=== PATIENT | male | born 1995 | race Caucasian/White ===

== ENCOUNTER → 2017-01-07 | Outpatient (CLI) | payer OTHER ==
[2017-01-07 13:39] VITALS: BP 130/84; PULSE 90; RESP 16; TEMP 97
--- NOTE | 2017-01-07 14:03 | P.CONS ---
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 There are no alleviating or relieving factors. The aching pain is constant however the sharp pain that he gets from time to time is intermittent. The pain starts from the right inguinal incision down to the right scrotum. The patient feels some tingling in this area. The patient tried Soma before from his family physician however that did not help his pain and made him feel uncomfortable. Review of Systems All systems: negative Past Medical History Past Medical History: No Reported History History of Any Multi-Drug Resistant Organisms: None Reported Past Surgical History: Hernia Repair Additional Past Surgical History / Comment(s): right inguinal hernia repair x 2 , left inguinal repair. TONGUE SURGERY D/T "BUMP"-REMOVED. Past Anesthesia/Blood Transfusion Reactions: Postoperative Nausea & Vomiting ( PONV) Additional Past Anesthesia/Blood Transfusion Reaction / Comm: gets very nauseated w/anesthesia Past Psychological History: Anxiety Smoking Status: Never smoker Past Alcohol Use History: None Reported, Rare Additional Past Alcohol Use History / Comment(s): ONE DRINK EVERY OTHER MONTH. Past Drug Use History: Marijuana Additional Drug Use History / Comment(s): USED YEARS AGO. - Past Family History Mother Family Medical History: Cancer, Hypertension Additional Family Medical History / Comment(s): SKIN CANCER. Father Family Medical History: Hypertension Medications and Allergies Home Medications Medication Instructions Recorded Confirmed Type Escitalopram [Lexapro] 5 mg PO HS 01/07/17 01/07/17 History Ibuprofen [Motrin] 400 mg PO DIRECTED PRN 01/07/17 01/07/17 History Allergies Allergy/AdvReac Type Severity Reaction Status Date / Time No Known Allergies Allergy Verified 01/07/17 13:19 Physical Exam Vitals: Vital Signs Temp Pulse Resp BP Pulse Ox 01/07/17 13:34 97 F L 90 16 130/84 99 Intake and Output 01/06/17 01/07/17 01/07/17 22:59 06:59 14:59 Other: Weight 72.575 kg Patient Weight 01/08/17 06:59 Weight 72.575 kg - Psychiatric Psychiatric: A&O x's 3, appropriate affect, intact judgment & insight The patient is alert oriented 3 in no apparent distress. He has tenderness in the right inguinal hernia around the well-healed scar from his previous inguinal hernia repair. There is no swelling. There is no allodynia to touch. There are no skin changes and no erythema. No flank tenderness to palpation and percussion. Internal and external rotation of the right hip joint did not elicit any pain. Brian's test on the right side did not elicit any pain. Lungs are clear to auscultation heart is regular no murmurs. Assessment and Plan Plan: This is a 21-year-old gentleman with right groin pain. 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 I will schedule the patient to have right ilioinguinal nerve block under ultrasound guidance. I will also start him on small dose of Neurontin starting with 100 mg at night and the goal will be to go up to 1800 mg a day if he does not get any side effects to it I spoke with the patient about the possible side effects from Neurontin commonly sedation and weight gain. I thank our surgical colleagues for the consultation.
== END | disposition home or self-care (01) ==
LOC: PNWHC3 13:08
PROVIDERS: ATTEND Anesthesiology
DX: R10.31 Right lower quadrant pain (principal); F41.9 Anxiety disorder, unspecified; Z98.890 Other specified postprocedural states; Z79.1 Long term (current) use of non-steroidal anti-inflammatories (NSAID); Z79.899 Other long term (current) drug therapy
CPT/HCPCS: 99211

== ENCOUNTER 2017-01-28 08:40 | Day surgery (SDC) | payer OTHER ==
[2017-01-28 09:27] VITALS: TEMP 97.7
[2017-01-28] MEDS: LACTATED RINGERS 1,000 ML IV SCH ×2 (09:34→10:02)
[2017-01-28] MEDS ORDERED: LIDOCAINE 1% 20 ML VIAL (10MG/ML) FOR IV START INTRADERMA ONE (09:34)
[2017-01-28] MEDS ORDERED: MIDAZOLAM 2 MG/2 ML VIAL ONE (10:03)
[2017-01-28] MEDS ORDERED: TRIAMCINOLONE ACETONIDE 40 MG/ML 1 ML VIAL ONE (10:03)
[2017-01-28] MEDS ORDERED: fentaNYL (PF) 50 MCG/ML 2 ML AMP ONE (10:03)
[2017-01-28] MEDS ORDERED: BUPIVACAINE (PF) 0.75% 30 ML VIAL ONE (10:03)
[2017-01-28] MEDS ORDERED: IV FLUID CONTINUATION 1,000 ML IV ONE (10:34)
[2017-01-28 10:39] VITALS: PULSE 87; RESP 18
[2017-01-28 10:55] VITALS: BP 132/82
--- NOTE | 2017-01-30 11:45 | P.PCN ---
Date of Procedure: 01/28/17 Preoperative Diagnosis: Postoperative Diagnosis: Procedure(s) Performed: Preoperative diagnoses= 1-ilioinguinal neuralgia. Postoperative diagnoses= same as preoperative diagnosis. Procedure= Right Ilioinguinal nerve block with ultrasound guidance. Anesthesia= conscious sedation with Versed 2 mg and fentanyl 100 micrograms and local infiltration with lidocaine 1% 4 ml Estimated blood loss=minimal. Procedure indication= the patient had a history of severe chronic Right Groin pain, diagnosed with ilioinguinal neuralgia , unresponsive to conservative treatment. and patient here to have Right ilioinguinal nerve block Procedure description= the patient was seen and identified in the preoperative holding area, risks and benefits and alternative of the procedure and possible complications discussed with the patient, and he agreed with the preceding, patient signed the consent, an IV was started, and vital signs were monitored and were stable throughout the procedure, patient was placed in the supine position on the stretcher and Right groin and lower abdomen area was prepped , and draped with a sterile fashion, vital signs were closely monitored during the procedure, the linear ultrasound probe was placed in the medial and superior aspect of the on the Right iliac Crest, ,the Transvurs abdominus muscle,and the internal obique muscules identified, and the locations of the Right ilioinguinal nerve identified , local infiltration of the skin and subcutaneous tissue with lidocaine 1% 2 mL then a 20 -gauge 2 inches ultrasound needle advanced slowly with continous visualizations of the needle tip , and needle was in close proxemity of the Right ilioinguinal nerve , and after appropriate needle placement confirmed withe ultrasound ,the negative aspiration for heme , and there was no paresthesia during the injection, 10 ml of Marcaine 0.5% and 20 mdg of Dexamethasone , injected after negative aspiration, the needle removed, Then the skin was cleaned and a Band-Aid applied, the patient transported to recovery room in stable condition and he was monitored for 30 minutes before he was discharged home and then patient was reexamined before going home and patient was discharged in stable condition and patient will follow up with the pain clinic in a few weeks Implants: Indications for Procedure: Operative Findings: Description of Procedure:
== END 2017-01-28 11:08 | disposition home or self-care (01) ==
LOC: ORPAIN 08:40
PROVIDERS: ATTEND Specialist
DX: G89.29 Other chronic pain (principal); G57.81 Other specified mononeuropathies of right lower limb
CPT/HCPCS: 64425; 99152; J2250; J3301; J3010

== ENCOUNTER 2017-03-05 06:09 | Day surgery (SDC) | payer OTHER ==
[2017-03-05 07:28] VITALS: RESP 16; TEMP 97.7
[2017-03-05] MEDS ORDERED: LACTATED RINGERS 1,000 ML IV SCH (07:30)
[2017-03-05] MEDS ORDERED: LIDOCAINE 1% 20 ML VIAL (10MG/ML) FOR IV START INTRADERMA ONE (07:39)
[2017-03-05] MEDS ORDERED: IV FLUID CONTINUATION 1,000 ML IV ONE (08:32)
[2017-03-05 08:36] VITALS: PULSE 81
--- NOTE | 2017-03-05 08:39 | P.PCN ---
Date of Procedure: 03/05/17 Preoperative Diagnosis: Postoperative Diagnosis: Procedure(s) Performed: Implants: Surgeon: Tim Billingsley Pathology: none sent Condition: stable Disposition: PACU Indications for Procedure: Operative Findings: Description of Procedure: PROCEDURE: Ultrasound guided Right ilioinguinal nerve block. PREOPERATIVE DIAGNOSIS: 1-Right ilioinguinal neuralgia. POSTOPERATIVE DIAGNOSIS: 1-Right ilioinguinal neuralgia. ANESTHESIA: Local anesthesia + IV sedation with Versed/fentanyl PROCEDURE INDICATION: History of pain in the right groin secondary to ilioinguinal neuralgia after hernia repair that has been unresponsive to more conservative treatment measures; patient had inguinal hernia repair and has had persistent pain even after first ilioinguinal nerve block, although this did give him significant (>60%) relief. Ultrasound was used to verify needle position and maximize safety. No use of blood thinners. PROCEDURE DESCRIPTION: The patient was seen and identified in the preoperative area. Risks, benefits, complications, and alternatives were discussed with the patient, with risks including but not limited to bleeding, infection, nerve damage, incomplete pain relief, and allergic reactions to medications. The patient agreed to proceed with the procedure and signed the consent. IV was started, and vital signs were stable. Patient was taken to the OR and time out was completed to verify area of pain, laterality of pain, procedure, and allergies to medications. Using ultrasound the different abdominal wall layers, the external oblique, the internal oblique, and the transversus abdominus were identified on the right side of the abdomen and pelvix. Subsquently, a 2-inch 22 gauge spinal needle was advanced under direct ultrasound guidance to the layer between the internal oblique and the transversus abdominus which corresponds to the block site of the ilioinguinal nerve. Subsequently, and after negative aspiration of air and blood, 10 mL of a block solution containing Kenalog 40 mg and 9 mL of 0.5% preservative-free bupivacaine, was injected under direct ultrasound guidance. Needle was then removed intact. Skin was cleansed and bandages were applied. There were no complications. DISPOSITION / PLANS: The patient was placed in a supine position and transferred to the recovery area in a stable condition for observation and was discharged from the recovery room after meeting discharge criteria. Home discharge instructions given to the patient by the staff. The patient was reexamined prior to discharge and already had excellent relief. The patient will schedule a follow up in the clinic in 2-4 weeks.
[2017-03-05 09:04] VITALS: BP 134/76
== END 2017-03-05 09:09 | disposition home or self-care (01) ==
LOC: ORPAIN 06:09
PROVIDERS: ATTEND Anesthesiology
DX: G58.8 Other specified mononeuropathies (principal); Z79.1 Long term (current) use of non-steroidal anti-inflammatories (NSAID); Z79.899 Other long term (current) drug therapy
CPT/HCPCS: 64425; 99152; 99153; J2250; J3301; J3010

== ENCOUNTER → 2017-06-10 | Outpatient (CLI) | payer OTHER ==
--- NOTE | 2017-06-10 14:33 | XR ---
EXAMINATION TYPE: XR lumbar spine 2 or 3V DATE OF EXAM: 06/10/2017 CLINICAL HISTORY: Back pain after lifting injury TECHNIQUE: Frontal and lateral images of the lumbar spine were obtained COMPARISON: None FINDINGS: There are 5 lumbar type vertebral bodies identified. The lumbar spine shows satisfactory alignment without evidence of acute fracture or dislocation. Vertebral body heights and disk space he ights are within normal limits. The oblique images appear within normal limits. The overlying soft tissue appears unremarkable. IMPRESSION: No acute fracture or malalignment is seen in the lumbar spine.
== END | disposition home or self-care (01) ==
LOC: RADXRMAIN 14:04
PROVIDERS: ATTEND Emergency Medicine
DX: S39.012D Strain of muscle, fascia and tendon of lower back, subsequent encounter (principal)
CPT/HCPCS: 72100

== ENCOUNTER → 2017-08-24 | Outpatient (CLI) | payer OTHER ==
[2017-08-24 08:34] LABS: Basophils # (A) 0.1 k/uL (0-0.2); Basophils % (A) 1 %; Eosinophils # (A) 0.1 k/uL (0-0.7); Eosinophils % (A) 2 %; HCT 49.5 % (39.0-53.0); HGB 16.3 gm/dL (13.0-17.5); Lymphocytes # (A) 2.1 k/uL (1.0-4.8); Lymphocytes % (A) 31 %; MCH 30.9 pg (25.0-35.0); MCV 93.6 fL (80.0-100.0); Mean Platelet Volume 7.2; Monocytes # (A) 0.5 k/uL (0-1.0); Monocytes % (A) 7 %; Neutrophils % (A) 58 %; Platelet Count 302 k/uL (150-450); RBC 5.29 m/uL (4.30-5.90); RDW 13.8 % (11.5-15.5)
[2017-08-24 09:04] LABS: ALT 65 U/L (21-72); AST 34 U/L (17-59); Albumin 4.8 g/dL (3.5-5.0); Alkaline Phosphatase 54 U/L (38-126); Anion Gap 10 mmol/L; Blood Urea Nitrogen 12 mg/dL (9-20); Carbon Dioxide 31 mmol/L (22-30); Chloride 101 mmol/L (98-107); Cholesterol 200 mg/dL (<200); Glucose 94 mg/dL (74-99); HDL Cholesterol 35 mg/dL (40-60); LDL Cholesterol,Calculated 140 mg/dL (0-99); Potassium 4.5 mmol/L (3.5-5.1); Sodium 142 mmol/L (137-145); Total Bilirubin 0.5 mg/dL (0.2-1.3); Total Protein 7.5 g/dL (6.3-8.2); Triglycerides 125 mg/dL (<150)
== END | disposition home or self-care (01) ==
LOC: LABWHC1 07:57
PROVIDERS: ATTEND Family Medicine
DX: I10 Essential (primary) hypertension (principal); G47.09 Other insomnia
CPT/HCPCS: 36415; 80053; 80061; 84443; 85025

== ENCOUNTER 2018-04-06 19:16 | Inpatient (IN) | payer OTHER ==
[2018-04-06 19:26] VITALS: TEMP 97.6
[2018-04-06] MEDS ORDERED: LORazepam 2 MG/ML INJ IV STA (19:59)
[2018-04-06] MEDS ORDERED: SODIUM CHLORIDE 0.9% 2,000 ML IV STA (19:59)
[2018-04-06] MEDS ORDERED: ONDANSETRON 4 MG/2 ML VIAL IVP STA (19:59)
--- NOTE | 2018-04-06 20:04 | ED ---
Anxiety HPI - General Chief Complaint: Anxiety Stated Complaint: anxiety Time Seen by Provider: 04/06/18 19:28 Source: patient, EMS Mode of arrival: EMS - History of Present Illness Initial Comments: Patient is a 22-year-old male presenting for anxiety-like symptoms as well as nausea/vomiting. 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 He states that he was having some abdominal discomfort which is not really pain but more describes a burning sensation in the upper part. He denies any alcohol usage or changes to his diet. He states that this is happened before in terms of panic attacks but they were not associated with nausea or vomiting. - Related Data Home Medications: Home Medications Medication Instructions Recorded Confirmed Escitalopram [Lexapro] 5 mg PO HS 01/07/17 03/05/17 Gabapentin [Neurontin] 100 mg PO HS 01/07/17 03/05/17 Ibuprofen [Motrin] 400 mg PO DIRECTED PRN 01/07/17 03/05/17 Allergies/Adverse Reactions: Allergies Allergy/AdvReac Type Severity Reaction Status Date / Time No Known Allergies Allergy Verified 03/05/17 07:29 Review of Systems ROS Statement: Those systems with pertinent positive or pertinent negative responses have been documented in the HPI. Constitutional: Negative for chills, fatigue and fever. HENT: Negative for congestion. Respiratory: Negative for chest tightness, shortness of breath and wheezing. Negative for cough Cardiovascular: Positive for chest tightness and negative for palpitations. Gastrointestinal: Negative for abdominal pain. Negative for abdominal distention , diarrhea, nausea and vomiting. Genitourinary: Negative for dysuria. Musculoskeletal: Negative for back pain, neck pain and neck stiffness. Skin: Negative for color change. Neurological: Negative for dizziness, speech difficulty, weakness and light- headedness. Psychiatric/Behavioral: Negative for agitation and confusion. Positive for anxiety ROS Other: All systems not noted in ROS Statement are negative. Past Medical History Past Medical History: Hypertension History of Any Multi-Drug Resistant Organisms: None Reported Past Surgical History: Hernia Repair Additional Past Surgical History / Comment(s): right inguinal hernia repair x 2 , left inguinal repair. TONGUE SURGERY D/T "BUMP"-REMOVED. Past Anesthesia/Blood Transfusion Reactions: Postoperative Nausea & Vomiting ( PONV) Additional Past Anesthesia/Blood Transfusion Reaction / Comment(s): gets very nauseated w/anesthesia Past Psychological History: Anxiety Smoking Status: Never smoker Past Alcohol Use History: Rare Past Drug Use History: Marijuana - Past Family History Mother Family Medical History: Cancer, Hypertension Additional Family Medical History / Comment(s): SKIN CANCER. Father Family Medical History: Hypertension General Exam - General Exam Comments Initial Comments: Constitutional: Pt is oriented to person, place, and time. Pt appears well- developed and well-nourished. No distress. HENT: Head: Normocephalic and atraumatic. Eyes: EOM are normal. Neck: Normal range of motion. Neck supple. Cardiovascular: Tachycardia present, regular rhythm, S1 normal, S2 normal and normal heart sounds. Exam reveals no gallop and no friction rub. No murmur heard. Pulmonary/Chest: Effort normal and breath sounds normal. No tachypnea and no bradypnea. No respiratory distress. No wheezes or rales noted. Abdominal: Soft. Bowel sounds are normal. Pt exhibits no shifting dullness, no distension, no pulsatile liver, no fluid wave, no abdominal bruit and no ascites. There is no tenderness. There is no rigidity, no rebound, no guarding, no tenderness at McBurney's point and negative Burt's sign. Musculoskeletal: Normal range of motion. Neurological: Pt is alert and oriented to person, place, and time. No cranial nerve deficit. Skin: Skin is warm and dry. No rash noted. Pt is not diaphoretic. No erythema. No pallor. Psychiatric: Patient is anxious. Pt behavior is normal. Thought content normal. Limitations: no limitations Course Vital Signs 04/06/18 04/06/18 19:22 22:19 Temperature 97.6 F Pulse Rate 87 110 H Respiratory 17 17 Rate Blood Pressure 136/86 142/72 O2 Sat by Pulse 98 99 Oximetry Medical Decision Making - Medical Decision Making Laboratory studies showed that there is a leukocytosis of 22.3 and significant electrolyte derangements including hypocalcemia of 6.3 both in non-ionized calcium and ionized calcium. However, EKG showed no significant findings and patient was given 2 L of fluids as well as 1 mg of Ativan. Even so, the patient continued to been tachycardic in the 1 teens. There is no clear discernible source for this and therefore is felt that considering the tachycardia, it be prudent to bring the patient in for continued IV hydration as well as monitoring. Additionally, there is concern for possible adrenal gland etiology and therefore some of the kidneys and adrenal glands were ordered. Urinalysis and urine drug screen are also pending at the time of disposition..Explained all labs and diagnostic test results and that we will admit patient to hospital. Pt is agreeable to plan and case has been discussed with Dr. Herring and they agree to accept the pt. - Lab Data Result diagrams: 04/06/18 20:11 04/06/18 20:11 Lab Results 04/06/18 04/06/18 04/06/18 Range/Units 20:11 20:11 21:30 WBC 22.3 H (3.8-10.6) k/uL RBC 5.42 (4.30-5.90) m/uL Hgb 16.8 (13.0-17.5) gm/dL Hct 48.4 (39.0-53.0) % MCV 89.2 (80.0-100.0) fL MCH 31.0 (25.0-35.0) pg MCHC 34.7 (31.0-37.0) g/dL RDW 12.3 (11.5-15.5) % Plt Count 299 (150-450) k/uL Neutrophils % 87 % Lymphocytes % 6 % Monocytes % 6 % Eosinophils % 1 % Basophils % 0 % Neutrophils # 19.4 H (1.3-7.7) k/uL Lymphocytes # 1.3 (1.0-4.8) k/uL Monocytes # 1.2 H (0-1.0) k/uL Eosinophils # 0.2 (0-0.7) k/uL Basophils # 0.0 (0-0.2) k/uL Sodium 143 (137-145) mmol/L Potassium 3.4 L (3.5-5.1) mmol/L Chloride 119 H (98-107) mmol/L Carbon Dioxide 18 L (22-30) mmol/L Anion Gap 6 mmol/L BUN 10 (9-20) mg/dL Creatinine 0.60 L (0.66-1.25) mg/dL Est GFR (CKD-EPI)AfAm >90 (>60 ml/min/1.73 sqM) Est GFR (CKD-EPI)NonAf >90 (>60 ml/min/1.73 sqM) Glucose 69 L (74-99) mg/dL Calcium 6.3 L* (8.4-10.2) mg/dL Ionized Calcium Kira 6.3 H* (4.5-5.3) mg/dL Total Bilirubin 0.4 (0.2-1.3) mg/dL AST 29 (17-59) U/L ALT 42 (21-72) U/L Alkaline Phosphatase 42 (38-126) U/L Total Protein 5.1 L (6.3-8.2) g/dL Albumin 2.8 L (3.5-5.0) g/dL Lipase 32 (23-300) U/L - EKG Data EKG Comments: EKG shows normal sinus rhythm with a rate of 99 bpm, TX interval 144, QRS 108, QTC 446. There is no significant ST depressions or elevations. Disposition Clinical Impression: SIRS (systemic inflammatory response syndrome), Dehydration, Hypocalcemia, Tachycardia Disposition: ADMITTED IP TO THIS HOSP Condition: Fair Instructions: Generalized Anxiety Disorder (ED) Referrals: Daniel Paulino Jr, [Primary Care Provider] - 1-2 days Decision to Admit Reason: Admit from EC Decision Date: 04/06/18 Decision Time: 23:16
[2018-04-06 20:27] LABS: Basophils % (A) 0 %; Eosinophils # (A) 0.2 k/uL (0-0.7); Eosinophils % (A) 1 %; HCT 48.4 % (39.0-53.0); HGB 16.8 gm/dL (13.0-17.5); Lymphocytes # (A) 1.3 k/uL (1.0-4.8); Lymphocytes % (A) 6 %; MCHC 34.7 g/dL (31.0-37.0); MCV 89.2 fL (80.0-100.0); Mean Platelet Volume 6.5; Monocytes # (A) 1.2 k/uL (0-1.0); Monocytes % (A) 6 %; Neutrophils # (A) 19.4 k/uL (1.3-7.7); Neutrophils % (A) 87 %; Platelet Count 299 k/uL (150-450); RBC 5.42 m/uL (4.30-5.90); RDW 12.3 % (11.5-15.5); WBC 22.3 k/uL (3.8-10.6)
[2018-04-06 20:38] LABS: ALT 42 U/L (21-72); AST 29 U/L (17-59); Albumin 2.8 g/dL (3.5-5.0); Alkaline Phosphatase 42 U/L (38-126); Anion Gap 6 mmol/L; Blood Urea Nitrogen 10 mg/dL (9-20); Carbon Dioxide 18 mmol/L (22-30); Chloride 119 mmol/L (98-107); Glucose 69 mg/dL (74-99); Lipase 32 U/L (23-300); Potassium 3.4 mmol/L (3.5-5.1); Sodium 143 mmol/L (137-145); Total Bilirubin 0.4 mg/dL (0.2-1.3); Total Protein 5.1 g/dL (6.3-8.2)
--- NOTE | 2018-04-06 20:46 | XR ---
EXAMINATION TYPE: XR chest 2V DATE OF EXAM: 04/06/2018 COMPARISON: 03/27/2016 HISTORY: Nausea TECHNIQUE: Frontal and lateral views of the chest are obtained. FINDINGS: Heart and mediastinum are normal. Lungs are clear. Diaphragm is normal. Bony thorax appear s normal. IMPRESSION: Normal chest. No change.
[2018-04-06 20:47] LABS: Calcium 6.3 mg/dL (8.4-10.2)
[2018-04-06] MEDS ORDERED: CALCIUM GLUCONATE 1,000 MG in SODIUM CHLORIDE 0.9% 100 ML IVPB ONE ×2 (21:52→22:00)
[2018-04-06] MEDS ORDERED: NALOXONE 0.4 MG/ML 1 ML VIAL IV PRN (23:09)
[2018-04-06 23:38] VITALS: RESP 18
[2018-04-06] MEDS: SODIUM CHLORIDE 0.9% 1,000 ML IV SCH (23:39)
[2018-04-06 23:41] LABS: Appearance,Urine Clear (Clear); Bilirubin,Urine Negative (Negative); Blood,Urine Negative (Negative); Color,Urine Colorless; Glucose,Urine (UA) Negative (Negative); Ketones,Urine Negative (Negative); Leukocyte Esterase,Urine Negative (Negative); Nitrite,Urine Negative (Negative); Protein,Urine Negative (Negative); Specific Gravity,Urine 1.004 (1.001-1.035); Urobilinogen,Urine <2.0 mg/dL (<2.0)
--- NOTE | 2018-04-06 23:57 | ED ---
Medical Decision Making - Medical Decision Making Repeat EKG timed at 23:26 shows sinus tachycardia of a rate of 112, CA interval 134, QRS 106, QTC 455. There is no significant ST depressions or elevations. - Lab Data Result diagrams: 04/06/18 20:11 04/06/18 20:11 Lab Results 04/06/18 04/06/18 04/06/18 Range/Units 20:11 20:11 21:30 WBC 22.3 H (3.8-10.6) k/uL RBC 5.42 (4.30-5.90) m/uL Hgb 16.8 (13.0-17.5) gm/dL Hct 48.4 (39.0-53.0) % MCV 89.2 (80.0-100.0) fL MCH 31.0 (25.0-35.0) pg MCHC 34.7 (31.0-37.0) g/dL RDW 12.3 (11.5-15.5) % Plt Count 299 (150-450) k/uL Neutrophils % 87 % Lymphocytes % 6 % Monocytes % 6 % Eosinophils % 1 % Basophils % 0 % Neutrophils # 19.4 H (1.3-7.7) k/uL Lymphocytes # 1.3 (1.0-4.8) k/uL Monocytes # 1.2 H (0-1.0) k/uL Eosinophils # 0.2 (0-0.7) k/uL Basophils # 0.0 (0-0.2) k/uL Sodium 143 (137-145) mmol/L Potassium 3.4 L (3.5-5.1) mmol/L Chloride 119 H (98-107) mmol/L Carbon Dioxide 18 L (22-30) mmol/L Anion Gap 6 mmol/L BUN 10 (9-20) mg/dL Creatinine 0.60 L (0.66-1.25) mg/dL Est GFR (CKD-EPI)AfAm >90 (>60 ml/min/1.73 sqM) Est GFR (CKD-EPI)NonAf >90 (>60 ml/min/1.73 sqM) Glucose 69 L (74-99) mg/dL Calcium 6.3 L* (8.4-10.2) mg/dL Ionized Calcium Kira 6.3 H* (4.5-5.3) mg/dL Total Bilirubin 0.4 (0.2-1.3) mg/dL AST 29 (17-59) U/L ALT 42 (21-72) U/L Alkaline Phosphatase 42 (38-126) U/L Total Protein 5.1 L (6.3-8.2) g/dL Albumin 2.8 L (3.5-5.0) g/dL Lipase 32 (23-300) U/L Urine Color Urine Appearance (Clear) Urine pH (5.0-8.0) Ur Specific [place] (1.001-1.035) Urine Protein (Negative) Urine Glucose (UA) (Negative) Urine Ketones (Negative) Urine Blood (Negative) Urine Nitrite (Negative) Urine Bilirubin (Negative) Urine Urobilinogen (<2.0) mg/dL Ur Leukocyte Esterase (Negative) 04/06/18 Range/Units 23:20 WBC (3.8-10.6) k/uL RBC (4.30-5.90) m/uL Hgb (13.0-17.5) gm/dL Hct (39.0-53.0) % MCV (80.0-100.0) fL MCH (25.0-35.0) pg MCHC (31.0-37.0) g/dL RDW (11.5-15.5) % Plt Count (150-450) k/uL Neutrophils % % Lymphocytes % % Monocytes % % Eosinophils % % Basophils % % Neutrophils # (1.3-7.7) k/uL Lymphocytes # (1.0-4.8) k/uL Monocytes # (0-1.0) k/uL Eosinophils # (0-0.7) k/uL Basophils # (0-0.2) k/uL Sodium (137-145) mmol/L Potassium (3.5-5.1) mmol/L Chloride (98-107) mmol/L Carbon Dioxide (22-30) mmol/L Anion Gap mmol/L BUN (9-20) mg/dL Creatinine (0.66-1.25) mg/dL Est GFR (CKD-EPI)AfAm (>60 ml/min/1.73 sqM) Est GFR (CKD-EPI)NonAf (>60 ml/min/1.73 sqM) Glucose (74-99) mg/dL Calcium (8.4-10.2) mg/dL Ionized Calcium Kira (4.5-5.3) mg/dL Total Bilirubin (0.2-1.3) mg/dL AST (17-59) U/L ALT (21-72) U/L Alkaline Phosphatase (38-126) U/L Total Protein (6.3-8.2) g/dL Albumin (3.5-5.0) g/dL Lipase (23-300) U/L Urine Color Colorless Urine Appearance Clear (Clear) Urine pH 7.0 (5.0-8.0) Ur Specific [place] 1.004 (1.001-1.035) Urine Protein Negative (Negative) Urine Glucose (UA) Negative (Negative) Urine Ketones Negative (Negative) Urine Blood Negative (Negative) Urine Nitrite Negative (Negative) Urine Bilirubin Negative (Negative) Urine Urobilinogen <2.0 (<2.0) mg/dL Ur Leukocyte Esterase Negative (Negative) Disposition Clinical Impression: SIRS (systemic inflammatory response syndrome), Dehydration, Hypocalcemia, Tachycardia Disposition: ADMITTED IP TO THIS HOSP Condition: Fair Instructions: Generalized Anxiety Disorder (ED) Referrals: Daniel Paulino Jr, [Primary Care Provider] - 1-2 days
[2018-04-07 00:01] LABS: Amphetamine Screen,Urine Not Detected (NotDetected); Barbiturate Screen,Urine Not Detected (NotDetected); Benzodiazepines Screen,Urine Not Detected (NotDetected); Cocaine Screen,Urine Not Detected (NotDetected); Methadone Screen, Urine Not Detected (NotDetected); Opiate Screen,Urine Not Detected (NotDetected); Oxycodone Screen, Urine Not Detected (NotDetected); Phencyclidine Screen,Urine Not Detected (NotDetected); Tricyclic Antidepressant,Urine Not Detected (NotDetected); Urn Cannabinoid Scrn Not Detected (NotDetected)
[2018-04-07 01:26] VITALS: BMI 25.5
[2018-04-07 03:23] LABS: Basophils % (A) 0 %; Eosinophils # (A) 0.1 k/uL (0-0.7); Eosinophils % (A) 2 %; HCT 41.9 % (39.0-53.0); HGB 14.2 gm/dL (13.0-17.5); Lymphocytes # (A) 1.6 k/uL (1.0-4.8); Lymphocytes % (A) 18 %; MCH 30.5 pg (25.0-35.0); MCHC 33.9 g/dL (31.0-37.0); Mean Platelet Volume 7.2; Monocytes # (A) 0.6 k/uL (0-1.0); Monocytes % (A) 7 %; Neutrophils # (A) 6.8 k/uL (1.3-7.7); Neutrophils % (A) 73 %; Platelet Count 246 k/uL (150-450); RBC 4.66 m/uL (4.30-5.90); RDW 12.7 % (11.5-15.5); WBC 9.4 k/uL (3.8-10.6)
[2018-04-07 03:40] LABS: ALT 49 U/L (21-72); AST 27 U/L (17-59); Albumin 3.7 g/dL (3.5-5.0); Alkaline Phosphatase 42 U/L (38-126); Anion Gap 6 mmol/L; Blood Urea Nitrogen 11 mg/dL (9-20); Calcium 8.5 mg/dL (8.4-10.2); Carbon Dioxide 25 mmol/L (22-30); Chloride 109 mmol/L (98-107); Glucose 92 mg/dL (74-99); Potassium 4.2 mmol/L (3.5-5.1); Sodium 140 mmol/L (137-145); Total Bilirubin 0.9 mg/dL (0.2-1.3); Total Protein 6.1 g/dL (6.3-8.2)
[2018-04-07 07:11] VITALS: BP 139/85; PULSE 98
[2018-04-07] MEDS: SODIUM CHLORIDE 0.9% 1,000 ML IV SCH (08:42)
[2018-04-07] MEDS ORDERED: SODIUM CHLORIDE 0.9% 500 ML IV ONE (09:13)
[2018-04-07] MEDS ORDERED: ONDANSETRON 4 MG/2 ML VIAL IVP PRN (09:13)
--- NOTE | 2018-04-07 10:21 | US ---
EXAMINATION TYPE: US renals and bladder DATE OF EXAM: 04/07/2018 COMPARISON: CT abdomen and pelvis January 10, 2016 CLINICAL HISTORY: Pain. Elevated WBC count per patient EXAM MEASUREMENTS: Right Kidney: 10.5 x 6.3 x 3.8 cm Left Kidney: 11.0 x 4.9 x 5.5 cm Post Void Residual Volume: 0 mL Right Kidney: lower pole mid hyperechoic renal calcification(s) with posterior shadowing = 1.0 x 0.6 x 0.4cm Left Kidney: mid lower very small calcification = 0.2 x 0.3 x 0.1cm Bladder: wnl Bilateral Jets seen: yes, but small left ureteral jet seen x 2 Normal Post Void Residual: yes Visualized portion of bladder is unremarkable. Right kidney shows more prominent nonobstructing canno t exclude new tiny 3 mm calculus mid to lower pole level left kidney. Lower pole calculus measuring 6 mm transversely image 28. IMPRESSION: No suspicious finding is seen to account for patient's symptoms of leukocytosis. Redemonstration of r ight renal calculus increased in size. Cannot exclude new tiny nonobstructing left renal calculus.
[2018-04-07 12:39] LABS: Basophils % (A) 0 %; Eosinophils # (A) 0.1 k/uL (0-0.7); Eosinophils % (A) 2 %; HCT 45.9 % (39.0-53.0); HGB 15.1 gm/dL (13.0-17.5); Lymphocytes # (A) 1.6 k/uL (1.0-4.8); Lymphocytes % (A) 23 %; MCH 30.2 pg (25.0-35.0); MCHC 32.8 g/dL (31.0-37.0); MCV 91.9 fL (80.0-100.0); Mean Platelet Volume 6.9; Monocytes # (A) 0.5 k/uL (0-1.0); Monocytes % (A) 7 %; Neutrophils # (A) 4.6 k/uL (1.3-7.7); Neutrophils % (A) 66 %; Platelet Count 277 k/uL (150-450); RBC 4.99 m/uL (4.30-5.90); RDW 12.7 % (11.5-15.5)
[2018-04-07 12:55] LABS: ALT 46 U/L (21-72); AST 28 U/L (17-59); Albumin 3.9 g/dL (3.5-5.0); Alkaline Phosphatase 46 U/L (38-126); Anion Gap 6 mmol/L; Blood Urea Nitrogen 9 mg/dL (9-20); Calcium 8.6 mg/dL (8.4-10.2); Carbon Dioxide 26 mmol/L (22-30); Chloride 109 mmol/L (98-107); Glucose 85 mg/dL (74-99); Potassium 3.9 mmol/L (3.5-5.1); Sodium 141 mmol/L (137-145); Total Bilirubin 0.8 mg/dL (0.2-1.3); Total Protein 6.5 g/dL (6.3-8.2)
--- NOTE | 2018-04-07 14:07 | P.DS ---
Providers Date of admission: 04/06/18 23:09 Expected date of discharge: 04/07/18 Attending physician: Sina Herring Primary care physician: Daniel [facility] Course: This document serves as H&P and discharge summary 22-year-old male who presented to the emergency room for anxiety. the patient reports he felt like he was having a panic attack. He also reports a few episodes of nausea and vomiting. the patient was out hiking earlier in the day for approximately 2 hours. He states he only drank 1 bottle of water while he was out hiking. He denied any diarrhea. Denies abdominal pain. Denies fever or chills. chest x-ray was completed which was negative for acute process. the patient's white count upon admission was elevated at 22.3. Repeat WBCs have been within normal limits. Patient's potassium was low at 3.4. Calcium was 6.3. The patient's abnormalities in his blood count have resolved. Potassium is currently 4.2. Calcium 8.5. White count 9.4. urinalysis was negative. Toxicology screen was negative. The patient states he is feeling back to normal. He denies nausea or vomiting at this time. Denies diarrhea. Denies anxiety. ultrasound of the kidneys was completed which did not reveal suspicious findings to account for patient's symptoms. Redemonstration of right renal calculus which was increased in size from previous imaging. Cannot exclude new tiny nonobstructing left renal calculus. The patient was deemed stable for discharge. He is to follow up on an outpatient basis. DISCHARGE DIAGNOSIS: Anxiety attack, present on admission, resolved Nausea, vomiting, and leukocytosis, etiology unclear, possible viral in nature, resolved Electrolyte disturbances may be secondary to vomiting and dehydration, resolved Nurse practitioner note has been reviewed by physician. Signing provider agrees with the documented findings, assessment, and plan of care. Patient Condition at Discharge: Stable Plan - Discharge Summary New Discharge Prescriptions: No Action Ibuprofen [Motrin Ib] 200 - 400 mg PO Q6H PRN PRN Reason: Pain Discharge Medication List Ibuprofen [Motrin Ib] 200 - 400 mg PO Q6H PRN 04/07/18 [History] Follow up Appointment(s)/Referral(s): Daniel Paulino Jr, [Primary Care Provider] - 1-2 days Patient Instructions/Handouts: Generalized Anxiety Disorder (ED)
== END 2018-04-07 14:05 | disposition home or self-care (01) | DRG 880 ==
LOC: EC 19:16 → 4MS4W 23:09
PROVIDERS: ADMIT Family Medicine; ATTEND Family Medicine
DX: F41.0 Panic disorder [episodic paroxysmal anxiety] (principal); R65.10 Systemic inflammatory response syndrome (SIRS) of non-infectious origin without acute organ dysfunction; F41.1 Generalized anxiety disorder; D72.829 Elevated white blood cell count, unspecified; E83.51 Hypocalcemia; E86.0 Dehydration; I10 Essential (primary) hypertension; N20.0 Calculus of kidney; R00.0 Tachycardia, unspecified; R11.2 Nausea with vomiting, unspecified; Z79.899 Other long term (current) drug therapy; Z80.8 Family history of malignant neoplasm of other organs or systems; Z82.49 Family history of ischemic heart disease and other diseases of the circulatory system
CPT/HCPCS: 36415; 71046; 76770; 80053; 80306; 81003; 82330; 83690; 84443; 85025; 93005; 96361; 96365; 96375; 99285

== ENCOUNTER → 2018-04-08 | Outpatient (CLI) | payer OTHER ==
[2018-04-08 15:58] LABS: Calcium 9.9 mg/dL (8.4-10.2); Ionized Calcium 5.2 mg/dL (4.5-5.3); Potassium 4.5 mmol/L (3.5-5.1)
== END | disposition home or self-care (01) ==
LOC: LABWHC1 15:10
PROVIDERS: ATTEND Family Medicine
DX: I10 Essential (primary) hypertension (principal); E83.50 Unspecified disorder of calcium metabolism
CPT/HCPCS: 36415; 80051; 82310; 82330; 83970; 84443

== ENCOUNTER 2018-12-16 17:19 | Emergency (ER) | payer MEDICAID, OTHER ==
[2018-12-16] MEDS ORDERED: SODIUM CHLORIDE 0.9% 1,000 ML IV STA (17:44)
[2018-12-16] MEDS ORDERED: ONDANSETRON 4 MG/2 ML VIAL IVP STA (17:44)
--- NOTE | 2018-12-16 18:01 | ED ---
General Adult HPI - General Chief complaint: Nausea/Vomiting/Diarrhea Stated complaint: vomiting/black stool Time Seen by Provider: 12/16/18 17:34 Source: patient, RN notes reviewed, old records reviewed Mode of arrival: ambulatory Limitations: no limitations - History of Present Illness Initial comments: 23-year-old male patient with no pertinent past medical history presents to ED with 1 day of diarrhea. Patient works as had some abdominal cramping with the diarrhea. Denies any area of focal abdominal tenderness. Patient has had some nausea without emesis. Patient states that his primary presenting to ER because he states that his diarrhea was very dark in color, patient wanted to make sure there was not blood. Patient denies any other complaints. Patient denies chest pain shortness of breath. Systemic: Pt denies fatigue, myalgia, fever/chills, rash. Pt denies weakness, night sweats, weight loss. Neuro: Pt denies headache, visual disturbances, syncope or pre-syncope. HEENT: Pt denies ocular discharge or irritation, otalgia, rhinorrhea, pharyngitis or notable lymphadenopathy. Cardiopulmonary: Pt denies chest pain, SOB, heart palpitations, dyspnea on exertion. : Pt denies dysuria, burning w/ urination, frequency/urgency. Denies new onset urinary or bowel incontinence. MSK: Pt denies myalgia, loss of strength or function in extremities. Neuro: Pt denies new onset weakness, paresthesias. - Related Data Home Medications Medication Instructions Recorded Confirmed Bisoprolol-Hctz 5-6.25 mg [Ziac 1 tab PO HS 12/16/18 12/16/18 5-6.25] Escitalopram [Lexapro] 5 mg PO HS 12/16/18 12/16/18 Allergies Allergy/AdvReac Type Severity Reaction Status Date / Time Anesthetics - Amide Type Allergy Unknown Verified 12/16/18 17:54 Anesthetics - Addie Type- Allergy Unknown Verified 12/16/18 17:54 Parabens Review of Systems ROS Statement: Those systems with pertinent positive or pertinent negative responses have been documented in the HPI. ROS Other: All systems not noted in ROS Statement are negative. Past Medical History Past Medical History: Hypertension History of Any Multi-Drug Resistant Organisms: None Reported Past Surgical History: Hernia Repair Additional Past Surgical History / Comment(s): right inguinal hernia repair x 2, left inguinal repair. TONGUE SURGERY D/T "BUMP"-REMOVED. Past Anesthesia/Blood Transfusion Reactions: Postoperative Nausea & Vomiting (PONV) Additional Past Anesthesia/Blood Transfusion Reaction / Comment(s): gets very nauseated w/anesthesia Past Psychological History: Anxiety, Depression Smoking Status: Never smoker Past Alcohol Use History: Rare Past Drug Use History: None Reported - Past Family History Mother Family Medical History: Cancer, Hypertension Additional Family Medical History / Comment(s): SKIN CANCER. Father Family Medical History: Hypertension General Exam - General Exam Comments Initial Comments: Constitutional: NAD, AOX3, Pt has pleasant affect. HEENT: NC/AT, trachea midline, neck supple, no lymphadenopathy. Posterior pharynx non erythematous, without exudates. External ears appear normal, without discharge. Mucous membranes moist. Eyes PERRLA, EOM intact. There is no scleral icterus. No pallor noted. Cardiopulmonary: RRR, no murmurs, rubs or gallops, no JVD noted. Lungs CTAB in anterior and posterior villatoro. No peripheral edema. HR 98 manual. Abdominal exam: Abdomen soft and non-distended. Abdomen non-tender to palpation in all 4 quadrants. No guarding, no rigidity. Bowel sounds active in LLQ. No hepatosplenomegaly. No ecchymosis Neuro: CN II-XII grossly intact. No nuchal rigidity. MSK: No posterior calf tenderness bilaterally, homans sign negative bilaterally. Posterior tibialis and radial pulse +2 bilaterally. Sensation intact in upper and lower extremities. Full active ROM in upper and lower extremities, 5/5 streg nth. Limitations: no limitations Course Vital Signs 12/16/18 12/16/18 17:28 19:57 Temperature 98.2 F 97.8 F Pulse Rate 133 H 118 H Respiratory 18 16 Rate Blood Pressure 126/75 127/73 O2 Sat by Pulse 97 99 Oximetry Medical Decision Making - Medical Decision Making 23-year-old male patient with no pertinent past medical history presents to ED with 1 day of diarrhea. Patient works as had some abdominal cramping with the diarrhea. Denies any area of focal abdominal tenderness. Patient has had some nausea without emesis. Patient states that his primary presenting to ER because he states that his diarrhea was very dark in color, patient wanted to make sure there was not blood. Patient denies any other complaints. Patient denies chest pain shortness of breath. Patient vital signs initial displayed mild tachycardia. Normal as after IV fluid administration. Physical exam did not display acute pathology. Nontender abdomen. Laboratory investigations revealed nonspecific CBC, CMP. Stool occult negative. KUB did not display obstruction or mass. Patient likely has a viral gastritis like symptoms. Patient discharged, patient follow up with primary care provider in 1-2 days. Case discussed with Dr. Callejas. - Lab Data Result diagrams: 12/16/18 17:44 12/16/18 17:44 Lab Results 12/16/18 12/16/18 12/16/18 Range/Units 17:44 17:44 17:44 WBC 8.1 (3.8-10.6) k/uL RBC 5.09 (4.30-5.90) m/uL Hgb 16.2 (13.0-17.5) gm/dL Hct 46.7 (39.0-53.0) % MCV 91.7 (80.0-100.0) fL MCH 31.8 (25.0-35.0) pg MCHC 34.7 (31.0-37.0) g/dL RDW 12.7 (11.5-15.5) % Plt Count 302 (150-450) k/uL Neutrophils % 67 % Lymphocytes % 22 % Monocytes % 6 % Eosinophils % 2 % Basophils % 1 % Neutrophils # 5.4 (1.3-7.7) k/uL Lymphocytes # 1.8 (1.0-4.8) k/uL Monocytes # 0.5 (0-1.0) k/uL Eosinophils # 0.1 (0-0.7) k/uL Basophils # 0.0 (0-0.2) k/uL Sodium 141 (137-145) mmol/L Potassium 4.0 (3.5-5.1) mmol/L Chloride 106 (98-107) mmol/L Carbon Dioxide 26 (22-30) mmol/L Anion Gap 9 mmol/L BUN 11 (9-20) mg/dL Creatinine 0.94 (0.66-1.25) mg/dL Est GFR (CKD-EPI)AfAm >90 (>60 ml/min/1.73 sqM) Est GFR (CKD-EPI)NonAf >90 (>60 ml/min/1.73 sqM) Glucose 117 H (74-99) mg/dL Plasma Lactic Acid [place] 1.3 (0.7-2.0) mmol/L Calcium 9.5 (8.4-10.2) mg/dL Total Bilirubin 0.6 (0.2-1.3) mg/dL AST 31 (17-59) U/L ALT 48 (21-72) U/L Alkaline Phosphatase 55 (38-126) U/L Total Protein 7.4 (6.3-8.2) g/dL Albumin 4.6 (3.5-5.0) g/dL Amylase 52 (30-110) U/L Stool Occult Blood (Negative) 12/16/18 Range/Units 19:06 WBC (3.8-10.6) k/uL RBC (4.30-5.90) m/uL Hgb (13.0-17.5) gm/dL Hct (39.0-53.0) % MCV (80.0-100.0) fL MCH (25.0-35.0) pg MCHC (31.0-37.0) g/dL RDW (11.5-15.5) % Plt Count (150-450) k/uL Neutrophils % % Lymphocytes % % Monocytes % % Eosinophils % % Basophils % % Neutrophils # (1.3-7.7) k/uL Lymphocytes # (1.0-4.8) k/uL Monocytes # (0-1.0) k/uL Eosinophils # (0-0.7) k/uL Basophils # (0-0.2) k/uL Sodium (137-145) mmol/L Potassium (3.5-5.1) mmol/L Chloride (98-107) mmol/L Carbon Dioxide (22-30) mmol/L Anion Gap mmol/L BUN (9-20) mg/dL Creatinine (0.66-1.25) mg/dL Est GFR (CKD-EPI)AfAm (>60 ml/min/1.73 sqM) Est GFR (CKD-EPI)NonAf (>60 ml/min/1.73 sqM) Glucose (74-99) mg/dL Plasma Lactic Acid [place] (0.7-2.0) mmol/L Calcium (8.4-10.2) mg/dL Total Bilirubin (0.2-1.3) mg/dL AST (17-59) U/L ALT (21-72) U/L Alkaline Phosphatase (38-126) U/L Total Protein (6.3-8.2) g/dL Albumin (3.5-5.0) g/dL Amylase (30-110) U/L Stool Occult Blood Negative (Negative) Disposition Clinical Impression: Viral syndrome Disposition: HOME SELF-CARE Condition: Stable Instructions (If sedation given, give patient instructions): Acute Nausea and Vomiting (ED), Acute Diarrhea (ED) Additional Instructions: Patient to adhere to previously discussed treatment plan and will take medication(s) as directed. Patient to follow up with PCP in 1-2 days. Patient to return to ED if symptoms do not improve. Follow-up with primary care provider tomorrow. Return to ER if condition worsens in any way. Lots of oral fluid intake. Is patient prescribed a controlled substance at d/c from ED?: No Referrals: Daniel Paulino Jr, DO [Primary Care Provider] - 1-2 days
[2018-12-16 18:03] LABS: Basophils % (A) 1 %; Eosinophils # (A) 0.1 k/uL (0-0.7); Eosinophils % (A) 2 %; HCT 46.7 % (39.0-53.0); HGB 16.2 gm/dL (13.0-17.5); Lymphocytes # (A) 1.8 k/uL (1.0-4.8); Lymphocytes % (A) 22 %; MCH 31.8 pg (25.0-35.0); MCHC 34.7 g/dL (31.0-37.0); MCV 91.7 fL (80.0-100.0); Mean Platelet Volume 6.5; Monocytes # (A) 0.5 k/uL (0-1.0); Monocytes % (A) 6 %; Neutrophils # (A) 5.4 k/uL (1.3-7.7); Neutrophils % (A) 67 %; Platelet Count 302 k/uL (150-450); RBC 5.09 m/uL (4.30-5.90); RDW 12.7 % (11.5-15.5); WBC 8.1 k/uL (3.8-10.6)
--- NOTE | 2018-12-16 18:10 | XR ---
EXAMINATION TYPE: XR KUB DATE OF EXAM: 12/16/2018 COMPARISON: 10/09/2013 HISTORY: Pain;Black diarrhea;nausea and vomiting TECHNIQUE: 2 upright views FINDINGS: Visualized lung bases and pleural spaces are negative. No pneumoperitoneum or pneumatosis. Bowel gas pattern is within normal limits. However, fluid filled stomach is noted, only mildly-istended. A nonspecific finding, this may correla te with the patient's symptoms. No acute skeletal or soft tissue findings are evident. IMPRESSION: Nonspecific fluid-filled stomach.
[2018-12-16 18:13] LABS: ALT 48 U/L (21-72); AST 31 U/L (17-59); Albumin 4.6 g/dL (3.5-5.0); Alkaline Phosphatase 55 U/L (38-126); Amylase 52 U/L (30-110); Anion Gap 9 mmol/L; Blood Urea Nitrogen 11 mg/dL (9-20); Calcium 9.5 mg/dL (8.4-10.2); Carbon Dioxide 26 mmol/L (22-30); Chloride 106 mmol/L (98-107); Glucose 117 mg/dL (74-99); Sodium 141 mmol/L (137-145); Total Bilirubin 0.6 mg/dL (0.2-1.3); Total Protein 7.4 g/dL (6.3-8.2)
[2018-12-16 20:00] VITALS: BP 127/73; RESP 16; TEMP 97.8
[2018-12-16 20:07] VITALS: PULSE 98
== END 2018-12-16 20:06 | disposition home or self-care (01) ==
LOC: EC 17:19
DX: B34.9 Viral infection, unspecified (principal); I10 Essential (primary) hypertension; F32.9 Major depressive disorder, single episode, unspecified; F41.9 Anxiety disorder, unspecified; Z79.899 Other long term (current) drug therapy; Z88.4 Allergy status to anesthetic agent
CPT/HCPCS: 99284 ×2; 96374 ×2; 36415; 80053; 82150; 83605; 85025; 82272; 74018; 96361; J2405

== ENCOUNTER → 2019-06-05 | Outpatient (CLI) | payer MEDICAID ==
--- NOTE | 2019-06-05 16:17 | CT ---
EXAMINATION TYPE: CT pelvis wo con DATE OF EXAM: 06/05/2019 COMPARISON: CT abdomen and pelvis January 10, 2016. HISTORY: groin pain per patient. Diverticulitis per order. CT DLP: 309.2 mGycm Automated exposure control for dose reduction was used. CT of pelvis is performed without IV but with oral contrast. FINDINGS: Oral contrast does not reach left colonic level. Normal-appearing appendix is seen from cecum in the right lower quadrant. No suspicious small or large bowel dilatation. No acute diverticulitis is evide nt. No significant colonic diverticular disease. Urinary bladder and prostate are within normal limits. Surgical coils from inguinal hernia repair mamta janes are present bilaterally. No recurrent hernia or suspicious groin adenopathy. No pelvic adenopath y. No concerning pelvic fluid collection. Visualized osseous structures are intact. IMPRESSION: UNREMARKABLE STUDY.
== END | disposition home or self-care (01) ==
LOC: RADCTMAIN 14:25
PROVIDERS: ATTEND Surgery Plastic and Reconstructive Surgery
DX: K57.32 Diverticulitis of large intestine without perforation or abscess without bleeding (principal)
CPT/HCPCS: 72192

== ENCOUNTER 2019-07-29 21:08 | Emergency (ER) | payer MEDICAID, OTHER ==
[2019-07-29 21:20] VITALS: BP 123/78; PULSE 70; RESP 18; TEMP 97.9
[2019-07-29] MEDS ORDERED: IBUPROFEN 600 MG TAB PO STA (21:53)
--- NOTE | 2019-07-29 22:00 | ED ---
Back Pain HPI - General Chief Complaint: Back Pain/Injury Stated Complaint: [facility] Back Pain Time Seen by Provider: 07/29/19 21:22 Source: patient Limitations: no limitations - History of Present Illness Initial Comments: Patient is a 23-year-old male presenting to the emergency Department with complaints of right sided upper back pain happen suddenly today. 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 He has pain with deep breathing as well as right shoulder movement. Patient is left-handed. Patient denies any direct trauma to the area. Patient denies any other previous injuries or trauma to that test thoracic spine or upper trap. Patient has no other complaints at this time. Upon arrival to the ER, vital signs are stable. - Related Data Home Medications Medication Instructions Recorded Confirmed Bisoprolol-Hctz 5-6.25 mg [Ziac 1 tab PO HS 12/16/18 12/16/18 5-6.25] Escitalopram [Lexapro] 5 mg PO HS 12/16/18 12/16/18 Previous Rx's Medication Instructions Recorded Cyclobenzaprine [Flexeril] 5 mg PO BID PRN #10 tablet 07/29/19 Allergies Allergy/AdvReac Type Severity Reaction Status Date / Time Anesthetics - Amide Type Allergy Unknown Verified 12/16/18 17:54 Anesthetics - Addie Type- Allergy Unknown Verified 12/16/18 17:54 Parabens Review of Systems ROS Statement: Those systems with pertinent positive or pertinent negative responses have been documented in the HPI. ROS Other: All systems not noted in ROS Statement are negative. Past Medical History Past Medical History: Hypertension History of Any Multi-Drug Resistant Organisms: None Reported Past Surgical History: Hernia Repair Additional Past Surgical History / Comment(s): right inguinal hernia repair x 2, left inguinal repair. TONGUE SURGERY D/T "BUMP"-REMOVED. Past Anesthesia/Blood Transfusion Reactions: Postoperative Nausea & Vomiting (PONV) Additional Past Anesthesia/Blood Transfusion Reaction / Comment(s): gets very nauseated w/anesthesia Past Psychological History: Anxiety, Depression Smoking Status: Never smoker Past Alcohol Use History: Rare Past Drug Use History: None Reported - Past Family History Mother Family Medical History: Cancer, Hypertension Additional Family Medical History / Comment(s): SKIN CANCER. Father Family Medical History: Hypertension General Exam - General Exam Comments Initial Comments: GENERAL: Well-appearing, well-nourished and in no acute distress. HEAD: Atraumatic, normocephalic. EYES: Pupils equal round and reactive to light, extraocular movements intact, sclera anicteric, conjunctiva are normal. ENT: Moist mucous membranes. NECK: Normal range of motion, supple without lymphadenopathy or JVD. LUNGS: Breath sounds clear to auscultation bilaterally and equal. No wheezes rales or rhonchi. HEART: Regular rate and rhythm without murmurs, rubs or gallops. ABDOMEN: Soft, nontender, normoactive bowel sounds. No guarding, no rebound. No masses appreciated. : Deferred EXTREMITIES: Pain with palpation of the right upper and mid trap, muscle spasm seen. Increased pain with right shoulder range of motion, although motion is normal. NEUROLOGICAL: Normal speech, normal gait. PSYCH: Normal mood, normal affect. SKIN: Warm, Dry, normal turgor, no rashes or lesions noted. Limitations: no limitations Course Vital Signs 07/29/19 21:17 Temperature 97.9 F Pulse Rate 70 Respiratory 18 Rate Blood Pressure 123/78 O2 Sat by Pulse 100 Oximetry Medical Decision Making - Medical Decision Making Patient is a 23-year-old male presenting with an acute onset of right sided upper and mid trapezius strain, spasm. 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 Vital signs are stable. I discussed with patient that this is most likely a muscle spasm and he needs to use heat to the area as well as gentle stretching. Patient will be given a trial of a muscle relaxer and can also take Motrin for discomfort. Patient is stable for discharge at this time and he is in agreement with this plan of care. Patient can follow up with PCP as needed. Disposition Clinical Impression: Trapezius muscle spasm Disposition: HOME SELF-CARE Condition: Stable Instructions (If sedation given, give patient instructions): Muscle Spasm (ED) Additional Instructions: Please return to the Emergency Department if symptoms worsen or any other concerns. Use heat to the area as well as gentle stretching. May take Motrin for pain relief. Trial of muscle relaxer at nighttime for relief. Prescriptions: Cyclobenzaprine [Flexeril] 5 mg PO BID PRN #10 tablet PRN Reason: Muscle Spasm Is patient prescribed a controlled substance at d/c from ED?: No Referrals: Daniel Paulino Jr, DO [Primary Care Provider] - 1-2 days
== END 2019-07-29 22:04 | disposition home or self-care (01) ==
LOC: EC 21:08
DX: M62.830 Muscle spasm of back (principal); I10 Essential (primary) hypertension; F41.9 Anxiety disorder, unspecified; F32.9 Major depressive disorder, single episode, unspecified; Z79.899 Other long term (current) drug therapy; Z88.4 Allergy status to anesthetic agent; Y99.0 Civilian activity done for income or pay
CPT/HCPCS: 99283

== ENCOUNTER 2019-07-31 12:21 | Emergency (ER) | payer MEDICAID, OTHER ==
[2019-07-31 12:39] VITALS: BP 138/82; PULSE 76; RESP 16; TEMP 98.2
--- NOTE | 2019-07-31 13:00 | ED ---
General Adult HPI - General Chief complaint: Back Pain/Injury Stated complaint: [facility]-Chest/Back Pain Time Seen by Provider: 07/31/19 12:35 Source: patient, RN notes reviewed, old records reviewed Mode of arrival: ambulatory Limitations: no limitations - History of Present Illness Initial comments: This is a 23-year-old male who presents to the emergency department stating that 2 days ago while at work he picked up a bag of laundry and he hurt his upper back. Patient went to the emergency department that time and since she's been taking Motrin he has yet to fill his prescription for Flexeril. Patient states the pain continues so he followed up with [facility]. Patient was seen [facility] and they had an EKG and was told to come back to the emergency department patient states she's here for chest x-ray. Patient states if he sits here he has no pain at all the only time he has pain is been taking deep breath or if he moves. Patient also states he has pain if you push on that area. Patient states the pain is in upper back just medial to the scapula. Patient states occasionally it does seem to radiate around to the front right side of his chest. Patient denies any shortness of breath or difficulty breathing. Patient denies any fever chills. - Related Data Home Medications Medication Instructions Recorded Confirmed Bisoprolol-Hctz 5-6.25 mg [Ziac 1 tab PO HS 12/16/18 12/16/18 5-6.25] Escitalopram [Lexapro] 5 mg PO HS 12/16/18 12/16/18 Previous Rx's Medication Instructions Recorded Cyclobenzaprine [Flexeril] 5 mg PO BID PRN #10 tablet 07/29/19 Allergies Allergy/AdvReac Type Severity Reaction Status Date / Time Anesthetics - Amide Type Allergy Unknown Verified 07/31/19 12:37 Anesthetics - Addie Type- Allergy Unknown Verified 07/31/19 12:37 Parabens Review of Systems ROS Statement: Those systems with pertinent positive or pertinent negative responses have been documented in the HPI. ROS Other: All systems not noted in ROS Statement are negative. Past Medical History Past Medical History: Hypertension History of Any Multi-Drug Resistant Organisms: None Reported Past Surgical History: Hernia Repair Additional Past Surgical History / Comment(s): right inguinal hernia repair x 2, left inguinal repair. TONGUE SURGERY D/T "BUMP"-REMOVED. Past Anesthesia/Blood Transfusion Reactions: Postoperative Nausea & Vomiting (PONV) Additional Past Anesthesia/Blood Transfusion Reaction / Comment(s): gets very nauseated w/anesthesia Past Psychological History: Anxiety, Depression Smoking Status: Never smoker Past Alcohol Use History: Rare Past Drug Use History: None Reported - Past Family History Mother Family Medical History: Cancer, Hypertension Additional Family Medical History / Comment(s): SKIN CANCER. Father Family Medical History: Hypertension General Exam - General Exam Comments Initial Comments: GENERAL: Patient is well-developed and well-nourished. Patient is nontoxic and well- hydrated and is in no acute distress. ENT: Neck is soft and supple. No significant lymphadenopathy is noted. Oropharynx is clear. Moist mucous membranes. Neck has full range of motion without eliciting any pain. EYES: The sclera were anicteric and conjunctiva were pink and moist. Extraocular movements were intact and pupils were equal round and reactive to light. Eyelids were unremarkable. PULMONARY: Unlabored respirations. Good breath sounds bilaterally. No audible rales rhonchi or wheezing was noted. CARDIOVASCULAR: There is a regular rate and rhythm without any murmurs gallops or rubs. ABDOMEN: Soft and nontender with normal bowel sounds. SKIN: Skin is clear with no lesions or rashes and otherwise unremarkable. NEUROLOGIC: Patient is alert and oriented x3. Cranial nerves II through XII are grossly intact. Motor and sensory are also intact. Normal speech, volume and content. Symmetrical smile. MUSCULOSKELETAL: Normal extremities with adequate strength and full range of motion. Patient's back is tender to palpation just medial to the right scapula. LYMPHATICS: No significant lymphadenopathy is noted PSYCHIATRIC: Normal psychiatric evaluation. Limitations: no limitations Course Vital Signs 07/31/19 12:37 Temperature 98.2 F Pulse Rate 76 Respiratory 16 Rate Blood Pressure 138/82 O2 Sat by Pulse 96 Oximetry Medical Decision Making - Medical Decision Making Chest x-ray shows no acute abnormality. I had the EKG sent from [facility] and it showed no acute abnormality. Recent states his lungs and states she'll doesn't take deep breath he has no back pain whatsoever. Patient states movement and/or deep breathing brings the pain on upper right back. Disposition Clinical Impression: Trapezius muscle strain Disposition: HOME SELF-CARE Condition: Good Instructions (If sedation given, give patient instructions): Muscle Strain (ED) Additional Instructions: Patient should take 600 of Motrin every 6 hours and the Flexeril that was previously prescribed. Is patient prescribed a controlled substance at d/c from ED?: No Referrals: Daniel Paulino Jr, [Primary Care Provider] - 1-2 days Time of Disposition: 13:53
--- NOTE | 2019-07-31 13:04 | XR ---
EXAMINATION TYPE: XR chest 2V DATE OF EXAM: 07/31/2019 COMPARISON: 04/06/2018 HISTORY: Difficulty breathing TECHNIQUE: Frontal and lateral views of the chest are obtained. FINDINGS: There is no focal air space opacity, pleural effusion, or pneumothorax seen. The cardiac silhouette size is within normal limits. The osseous structures are intact. IMPRESSION: No acute cardiopulmonary process.
== END 2019-07-31 14:16 | disposition home or self-care (01) ==
LOC: EC 12:21
DX: S46.919A Strain of unspecified muscle, fascia and tendon at shoulder and upper arm level, unspecified arm, initial encounter (principal); M54.6 Pain in thoracic spine; I10 Essential (primary) hypertension; F41.9 Anxiety disorder, unspecified; F32.9 Major depressive disorder, single episode, unspecified; Z79.899 Other long term (current) drug therapy; Z88.8 Allergy status to other drugs, medicaments and biological substances; X50.0XXA Overexertion from strenuous movement or load, initial encounter; Y93.89 Activity, other specified; Y92.69 Other specified industrial and construction area as the place of occurrence of the external cause; Y99.0 Civilian activity done for income or pay
CPT/HCPCS: 71046; 99284

== ENCOUNTER → 2019-08-06 | Outpatient (CLI) | payer MEDICAID ==
[2019-08-06 10:36] LABS: HCT 46.8 % (39.0-53.0); HGB 16.1 gm/dL (13.0-17.5); MCH 32.5 pg (25.0-35.0); MCHC 34.4 g/dL (31.0-37.0); MCV 94.5 fL (80.0-100.0); Mean Platelet Volume 7.1; Platelet Count 267 k/uL (150-450); RBC 4.95 m/uL (4.30-5.90); RDW 12.7 % (11.5-15.5); WBC 5.8 k/uL (3.8-10.6)
== END | disposition home or self-care (01) ==
LOC: LABPAT 09:42
PROVIDERS: ATTEND Anesthesiology
DX: Z01.812 Encounter for preprocedural laboratory examination (principal); I10 Essential (primary) hypertension
CPT/HCPCS: 36415; 84132; 85027

== ENCOUNTER → 2019-08-07 | Day surgery (SDC) | payer MEDICAID ==
[2019-08-04 15:52] VITALS: BMI 29.0
[~2019-08-07] MED LIST: ACETAMINOPHEN TAB 500 MG TAB PO STA; BUPIVACAIN-EPI 0.25%-1:200,000 30 ML VIAL SQ ONE; DEXAMETHASONE SOD PHOSPHATE 10 MG/ML 1 ML VIAL IV ONE; GABAPENTIN 300 MG CAP PO STA; GLYCOPYRROLATE 0.2 MG/ML 2 ML VIAL ONE; HEPARIN SODIUM,PORCINE 5,000 UNIT/ML 1 ML VIAL SQ STA; HYDROmorphone (PF) 1 MG/ML ONE; HYDROmorphone 0.5 MG/0.5 ML SYRINGE IVP PRN; KETOROLAC 30 MG/ML 1 ML VIAL ONE; LACTATED RINGERS 1,000 ML IV ONE; LACTATED RINGERS 1,000 ML IV SCH; LIDOCAINE 1% INJ 10MG/ML (20 ML MDV) ONE; MIDAZOLAM 2 MG/2 ML VIAL IV PRN; MIDAZOLAM 2 MG/2 ML VIAL ONE; NEOSTIGMINE 1 MG/ML 10 ML VIAL ONE; PHENYLEPHRINE-0.9% NACL SYG 1 MG/10 ML SYRINGE ONE; PROPOFOL 10 MG/ML 20 ML VIAL IV ONE; Pre Op ABX Message 1 EACH MISC MISCELLANE ONE; ROCURONIUM BROMIDE 10 MG/ML 10 ML VIAL IV ONE; SCOPOLAMINE 1.5MG/72HR PATCH TRANSDERM ONE; SIMETHICONE 80 MG CHEWABLE PO ONE; SUCCINYLCHOLINE CHLORIDE 100 MG/5 ML SYR IV ONE; TAMSULOSIN 0.4 MG CAP.ER.24H PO ONE; diphenhydrAMINE 50 MG/ML 1 ML VIAL ONE; fentaNYL (PF) 50 MCG/ML 2 ML AMP ONE
--- NOTE | 2019-08-07 10:44 | P.GSHP ---
History of Present Illness H&P Date: 08/07/19 CHIEF COMPLAINT: History of intra-abdominal adhesions HISTORY OF PRESENT ILLNESS: The patient is a 24-year-old male who presents with history of intra-abdominal adhesions from multiple prior surgeries including increasing abdominal pain. He now presents for diagnostic laparoscopy including lysis of adhesions. PAST MEDICAL HISTORY: Please see list. PAST SURGICAL HISTORY: Please see list. MEDICATIONS: Please see list. ALLERGIES: Please see list. FAMILY HISTORY: No reports of Crohn disease or ulcerative colitis. REVIEW OF ORGAN SYSTEMS: CONSTITUTIONAL: No reports of fevers or chills. GI: Denies any blood in stools or constipation. PHYSICAL EXAM: VITAL SIGNS: Stable GENERAL: Well-developed pleasant and in no acute distress. HEENT: No scleral icterus. Extraocular movements grossly intact. Moist buccal mucosa. NECK: Supple without lymphadenopathy. CHEST: Unlabored respirations. Equal bilateral excursions. CARDIOVASCULAR: Regular rate and rhythm. Distal 2+ pulses. ABDOMEN: Soft, diffuse abdominal tenderness. No peritonitis. MUSCULOSKELETAL: No clubbing, cyanosis, or edema. ASSESSMENT: 1. Diffuse abdominal pain. 2. History of multiple abdominal surgeries. 3. Intra-abdominal adhesions. PLAN: 1. Robotic lysis of adhesions were described in detail including risk of injury to the intestine, need for further surgery, and open technique. 2. DVT prophylaxis. 3. Antibiotic prophylaxis. Past Medical History Past Medical History: Hypertension History of Any Multi-Drug Resistant Organisms: None Reported Past Surgical History: Hernia Repair Additional Past Surgical History / Comment(s): right inguinal hernia repair x 2, left inguinal repair. TONGUE SURGERY D/T "BUMP"-REMOVED. Past Anesthesia/Blood Transfusion Reactions: Postoperative Nausea & Vomiting (PONV) Additional Past Anesthesia/Blood Transfusion Reaction / Comment(s): gets very nauseated w/anesthesia Smoking Status: Never smoker - Past Family History Mother Family Medical History: Cancer, Hypertension Additional Family Medical History / Comment(s): SKIN CANCER. Father Family Medical History: Hypertension Medications and Allergies Home Medications Medication Instructions Recorded Confirmed Type Bisoprolol-Hctz 5-6.25 mg [Ziac 1 tab PO HS 12/16/18 08/04/19 History 5-6.25] Escitalopram [Lexapro] 5 mg PO HS 12/16/18 08/04/19 History Cyclobenzaprine [Flexeril] 5 mg PO BID PRN #10 tablet 07/29/19 08/04/19 Rx Allergies Allergy/AdvReac Type Severity Reaction Status Date / Time Anesthetics - Amide Type Allergy Unknown Verified 07/31/19 12:37 Anesthetics - Addie Type- Allergy Unknown Verified 07/31/19 12:37 Parabens
[2019-08-07] MEDS: ONDANSETRON 4 MG/2 ML VIAL IVP ONE ×2 (11:40→15:37)
--- NOTE | 2019-08-07 12:53 | P.HPADDEND ---
H&P Addendum H&P Addendum Date: 08/07/19 Patient now reports new right lower quadrant abdominal pain with gas bloat. Risk for appendicitis described. Appendectomy as a part of his procedure also reviewed with robotic lysis of adhesions.
--- NOTE | 2019-08-07 14:44 | P.OP ---
Date of Procedure: 08/07/19 Description of Procedure: SURGEON: MICHAELA CALABRESE MD Preoperative Diagnosis: 1. Right lower quadrant abdominal pain 2. History of multiple abdominal surgeries with peritoneal adhesions 3. Pre-existing postop nausea or vomiting 4. Depressive disorder 5. Appendicitis Postoperative Diagnosis: 1. Right lower quadrant abdominal pain 2. History of multiple abdominal surgeries with peritoneal adhesions at right lower quadrant 3. Pre-existing postop nausea or vomiting 4. Depressive disorder 5. Appendicitis, retrocecal Procedure(s) Performed: 1. Robotic-assisted daVinci Xi laparoscopic extensive lysis of adhesions over 45 minutes 1. Robotic-assisted daVinci Xi laparoscopic appendectomy Anesthesia: GETA, local Surgeon: Michaela Calabrese Estimated Blood Loss (ml): 5 Pathology: other (appendix) Condition: stable Disposition: floor Operative Findings: 1. Extensive omental adhesions to right lower quadrant previous hernia mesh repair completely lysed 2. Retrocecal appendix extending into right upper quadrant also consistent with patient's location of pain INDICATIONS: The patient is a 24-year-old male who presents ersistent right lower quadrant abdominal pain with history of multiple abdominal surgeries particularly with previous right groin hernia repair. Separately, he reports increasing right lower quadrant abdominal pain extending to the right mid to upper quadrant suspicious for appendicitis. Benefits and risks, including infection, open surgery, and bleeding for additional surgery was discussed at length. Informed consent was obtained. All questions of the patient and family were answered. DESCRIPTION: The patient was transferred to the operating room and placed in pappas pine position. The patient had previously voided. The abdomen was then prepped and draped in standard sterile fashion as Ioban was placed along the abdomen to minimize any contamination of skin floor. After a timeout protocol was performed, attention was then brought to the left upper quadrant whereby a 0 degree 5 mm laparoscopic trocar entry was performed. The abdominal cavity was entered and insufflated to 15 mmHg pressure, which was tolerated well. Diagnostic laparoscopy demonstrated no injury to bowel, viscera or mesentery. Extensive greater omental adhesions along the right lower pelvis and previous mesh repair was identified. Next a robotic 12-mm trocar was placed along the left upper quadrant, 15-cm lateral to the midline. Two 8 mm ports were placed along the upper abdomen. Po rts were placed 10 cm apart from each other including 15-20 cm away from the target anatomy of the right pelvis. The patient was then placed in Trendelenburg position, at least 16 down and right side up at least 6. The robotic da Jourdan XI system was primed and docked from the left side of the patient. Using atraumatic graspers and vessel sealer, the robotic system was docked and primed as described. Instruments were interchanged by the design assistant including graspers, robotic stapler and vessel sealer. Next, attention was brought to the dense adhesions. Using a vessel sealer, blunt including sharp dissection with the vessel sealer was used to completely lyse the greater omentum from the right groin. over 45 minutes of extensive lysis of adhesions was performed with complete release of all adhesions. No recurrent right inguinal hernia was identified. The mesh along the left side was found folded, without recurrent inguinal hernia. Next, the cecum was identified with a retrocecal appendix extending to the right back and upper quadrant also consistent patient's location of pain. The appendix was carefully dissected free from the surrounding tissues. The appendix was retrocecal and extended into the right lateral abdominal wall. No evidence of perforation was found. The mid body to tip of the appendix was dilated consistent with appendicitis. A 45 mm white robotic staple loads were fired along the base of the appendix. The staple line was hemostatic. Hemostasis was checked prior to undocking the robot. The robot was undocked. I re-scrubbed into the case. The specimen was removed from the abdominal cavity with an Endo Catch bag through the 12 mm trocar. All instruments and pneumoperitoneum were evacuated from the abdominal cavity. Local anesthetic was infiltrated to all wounds for postop analgesia. All incisions were also cleansed with diluted hydrogen peroxide. The incisions were closed with 4-0 Monocryl. Exofin glue was applied to the rest of the skin incisions. The patient had tolerated the procedure well. The patient was extubated successfully. The patient was transferred to the postanesthesia care unit in stable condition. Plan - Discharge Summary Discharge Rx Participant: Yes New Discharge Prescriptions: New Ibuprofen [Motrin] 600 mg PO Q8HR PRN #30 tab PRN Reason: Pain Acetaminophen Tab [Tylenol Tab] 500 mg PO Q6H PRN #30 tablet PRN Reason: Pain Simethicone [Gas-X] 125 mg PO AC-TID #20 capsule No Action Escitalopram [Lexapro] 5 mg PO HS Bisoprolol-Hctz 5-6.25 mg [Ziac 5-6.25] 1 tab PO HS Cyclobenzaprine [Flexeril] 5 mg PO BID PRN #10 tablet PRN Reason: Muscle Spasm Discharge Medication List Bisoprolol-Hctz 5-6.25 mg [Ziac 5-6.25] 1 tab PO HS 12/16/18 [History] Escitalopram [Lexapro] 5 mg PO HS 12/16/18 [History] Cyclobenzaprine [Flexeril] 5 mg PO BID PRN #10 tablet 07/29/19 [Rx] Acetaminophen Tab [Tylenol Tab] 500 mg PO Q6H PRN #30 tablet 08/07/19 [Rx] Ibuprofen [Motrin] 600 mg PO Q8HR PRN #30 tab 08/07/19 [Rx] Simethicone [Gas-X] 125 mg PO AC-TID #20 capsule 08/07/19 [Rx] Follow up Appointment(s)/Referral(s): Michaela Calabrese MD [STAFF PHYSICIAN] - 08/20/19 Patient Instructions/Handouts: *[facility] - Scopalamine Patch Instructions Activity/Diet/Wound Care/Special Instructions: No lifting over 10 pounds in 2 weeks until Aug 21. December shower. No bath tub soaks for two weeks until Aug 21. Diet as tolerated. Use Tylenol and ibuprofen scheduled for the next 24-48 hours for best pain relief. Use ice along incisions for the today to prevent swelling. Discharge Disposition: HOME SELF-CARE
[2019-08-07 14:53] VITALS: TEMP 97.8
[2019-08-07 16:00] VITALS: RESP 17
[2019-08-07 17:08] VITALS: BP 153/69; PULSE 93
== END | disposition home or self-care (01) ==
LOC: OR 10:48
PROVIDERS: ATTEND Surgery Plastic and Reconstructive Surgery
DX: K36 Other appendicitis (principal); K66.0 Peritoneal adhesions (postprocedural) (postinfection); F32.9 Major depressive disorder, single episode, unspecified; I10 Essential (primary) hypertension; Z98.890 Other specified postprocedural states; Z80.8 Family history of malignant neoplasm of other organs or systems; Z79.899 Other long term (current) drug therapy; Z88.4 Allergy status to anesthetic agent
CPT/HCPCS: 88304; 44970; J2250; J1200; J1644; J1100; J2710; J0690; J2405; J2001; J3010; J1885; J1170; J2370; J0330; J2704

== ENCOUNTER → 2020-05-24 | Outpatient (CLI) | payer MEDICAID | END | disposition home or self-care (01) | LOC: LABWHC1 10:25 | PROVIDERS: ATTEND Pediatrics Pediatric Infectious Diseases | DX: Z03.818 Encounter for observation for suspected exposure to other biological agents ruled out (principal) | CPT/HCPCS: U0003; C9803 ==

== ENCOUNTER → 2020-09-15 | Outpatient (CLI) | payer MEDICAID ==
[2020-09-15 09:08] LABS: Basophils % (A) 0 %; Eosinophils # (A) 0.1 k/uL (0-0.7); Eosinophils % (A) 2 %; HCT 45.1 % (39.0-53.0); HGB 15.6 gm/dL (13.0-17.5); Lymphocytes # (A) 2.9 k/uL (1.0-4.8); Lymphocytes % (A) 42 %; MCH 31.7 pg (25.0-35.0); MCHC 34.7 g/dL (31.0-37.0); MCV 91.5 fL (80.0-100.0); Mean Platelet Volume 6.9; Monocytes # (A) 0.5 k/uL (0-1.0); Monocytes % (A) 7 %; Neutrophils # (A) 3.2 k/uL (1.3-7.7); Neutrophils % (A) 47 %; Platelet Count 252 k/uL (150-450); RBC 4.92 m/uL (4.30-5.90); RDW 12.5 % (11.5-15.5); WBC 6.9 k/uL (3.8-10.6)
--- NOTE | 2020-09-15 10:08 | XR ---
EXAMINATION TYPE: XR chest 2V DATE OF EXAM: 09/15/2020 COMPARISON: 07/31/2019 HISTORY: 25-year-old male R06.02, chest pain and palpitations. TECHNIQUE: Frontal and lateral views FINDINGS: The cardiomediastinal silhouette, aorta, and pulmonary vasculature are within normal limits. Lungs an d pleural spaces are clear. IMPRESSION: No acute cardiopulmonary process.
[2020-09-15 16:58] LABS: African American GFR (CKD) 106.1 (60.0-200.0); Albumin 4.7 g/dL (3.80-4.90); Albumin/Globulin Ratio 2.47 (1.60-3.17); Anion Gap 8.1 mmol/L (4.00-12.00); BUN/Creat Ratio 12.73 Ratio (12.00-20.00); Calcium 9.4 mg/dL (8.7-10.3); Carbon Dioxide 26.9 mmol/L (21.6-31.8); Chol/HDL Ratio 6.15; Globulin 1.9 g/dL (1.6-3.3); LDL Cholesterol,Calculated 135.6 mg/dL (0.0-131.0); Non-African American GFR(CKD) 91.5 (60.0-200.0); Potassium 4.3 mmol/L (3.5-5.5); Total Bilirubin 0.4 mg/dL (0.2-1.2); Total Protein 6.6 g/dL (6.2-8.2); VLDL Calculation 39.4 mg/dL (5.00-40.00)
[2020-09-15 17:08] LABS: T4, Free (Free Thyroxine) 1.2 ng/dL (0.80-1.80)
== END | disposition home or self-care (01) ==
LOC: LABWHC1 08:15
PROVIDERS: ATTEND Family Medicine
DX: R06.02 Shortness of breath (principal); R00.2 Palpitations
CPT/HCPCS: 36415; 71046; 80053; 80061; 82306; 84439; 84443; 85025; 86803; 93005

== ENCOUNTER → 2020-09-26 | Outpatient (CLI) | payer MEDICAID ==
--- NOTE | 2020-09-26 12:32 | ECHOS ---
STRESS ECHOCARDIOGRAM LUMASON: N/A Vial INDICATIONS: Chest pain MEDICATIONS: BASELINE HEART RATE: 76 BASELINE BLOOD PRESSURE: 126/75 MAXIMUM HEART RATE: 184 MAXIMUM BLOOD PRESSURE: 167/50 85% MPHR: 164 100% MPHR: 193 METS: 12.1 MAXIMUM STAGE REACHED: 4 TOTAL EXERCISE TIME: 12 minutes CLINICAL INFORMATION: Baseline rhythm is a sinus mechanism, rate of 76, normal axis and intervals, normal electrocardiogram. Baseline blood pressure 126/75 mmHg. Patient status post protocol for 12 minute reaching peak rate 184 beats per minute which is equal to 95% of maximum predicted heart rate. Peak blood pressure 167/50 mmHg. Test was terminated secondary to fatigue. There was no chest pain. Electrocardiograph monitoring revealed no evidence of diagnostic ischemic ST deviation. Baseline echocardiogram revealed normal wall motion. At peak exercise, there was normal wall motion augmentation with no hypokinesis or dyskinesis. CONCLUSION: 1. Good exercise tolerance with normal electrocardiograph response to exercise. 2. Normal stress echocardiogram with no evidence of stress-induced ischemia. MMODL / IJN: [id number] /
== END | disposition home or self-care (01) ==
LOC: RADNMMAIN 09:52
PROVIDERS: ATTEND Family Medicine
DX: R00.2 Palpitations (principal); R06.02 Shortness of breath; Z88.4 Allergy status to anesthetic agent
CPT/HCPCS: 93351

== ENCOUNTER → 2021-01-11 | Outpatient (CLI) | payer MEDICAID ==
--- NOTE | 2021-01-11 13:14 | XR ---
EXAMINATION TYPE: XR abdomen 1V DATE OF EXAM: 01/11/2021 11:45 AM CLINICAL HISTORY: 25-year-old male with right quadrant abdominal pain and blood in stool for 2 weeks TECHNIQUE: Single supine KUB image of the abdomen is obtained. COMPARISON: 12/16/2018. FINDINGS: Nonspecific, nonobstructive bowel gas pattern. Moderate stool and gas are scattered through out the colon and within the rectum. No dilated loops of large or small bowel to suggest bowel obstru ction. No abnormal calcifications are seen. No definite evidence of renal or ureteral calculi althoug h stool and gas obscure the visualization of the renal contours. Lung bases are clear. Osseous struct ures are unremarkable. IMPRESSION: 1. Nonspecific, nonobstructive bowel gas pattern. No abnormal calcifications are seen.
== END | disposition home or self-care (01) ==
LOC: RADXRMAIN 11:31
PROVIDERS: ATTEND Nurse Practitioner Women's Health
DX: R10.9 Unspecified abdominal pain (principal)
CPT/HCPCS: 74018

== ENCOUNTER → 2021-01-25 | Outpatient (CLI) | payer MEDICAID ==
--- NOTE | 2021-01-25 09:12 | NM ---
EXAMINATION TYPE: NM hepatobiliary w EF DATE OF EXAM: 01/25/2021 COMPARISON: CT abdomen and pelvis January 10, 2016 HISTORY: Generalized abdominal pain per order. On and off right upper quadrant pain for 6 weeks with heartburn and reflux-like symptoms and nausea per patient. TECHNIQUE: After the intravenous administration of 5.1 mCi Tc 99m Mebrofenin hepatobiliary scintigrap hy is performed. Immediate images post injection. FINDINGS: There is satisfactory initial accumulation of tracer by the liver. The gallbladder is visualized wit hin 10 minutes. The small bowel activity is now well seen even after 60 minutes. At one hour 8 ounc es of oral ensure plus is given to mimic CCK and gallbladder ejection fraction is calculated at 66 %, in the normal range. Therefore there is no scintigraphic evidence of cystic or common bile duct obs truction to suggest acute cholecystitis or gallbladder dyskinesia. IMPRESSION: Exam is within normal limits.
== END | disposition home or self-care (01) ==
LOC: RADNMMAIN 06:42
PROVIDERS: ATTEND Family Medicine
DX: R10.11 Right upper quadrant pain (principal); R12 Heartburn; R11.0 Nausea
CPT/HCPCS: 78226; A9537

== ENCOUNTER 2021-03-01 08:40 | Day surgery (SDC) | payer MEDICAID ==
[2021-02-28 09:13] VITALS: BMI 28.1
--- NOTE | 2021-03-01 07:46 | P.GSHP ---
History of Present Illness H&P Date: 03/01/21 CHIEF COMPLAINT: Change in bowel habits HISTORY OF PRESENT ILLNESS: The patient is a 25-year-old male who presents for colon screen. Lower endoscopy was offered for further evaluation and management. PAST MEDICAL HISTORY: Please see list. PAST SURGICAL HISTORY: Please see list. MEDICATIONS: Please see list. ALLERGIES: Please see list. SOCIAL HISTORY: No illicit drug use FAMILY HISTORY: No reports of Crohn disease or ulcerative colitis. REVIEW OF ORGAN SYSTEMS: CONSTITUTIONAL: No reports of fevers or chills. PHYSICAL EXAM: VITAL SIGNS: Stable GENERAL: Well-developed pleasant in no acute distress. HEENT: No scleral icterus. Extraocular movements grossly intact. Moist buccal mucosa. NECK: Supple without lymphadenopathy. CHEST: Unlabored respirations. Equal bilateral excursions. CARDIOVASCULAR: Regular rate and rhythm. Distal 2+ pulses. ABDOMEN: Soft, nontender, nondistended. MUSCULOSKELETAL: No clubbing, cyanosis, or edema. ASSESSMENT: 1. Colon screen. PLAN: 1. Recommend proceeding with a lower endoscopy Past Medical History Past Medical History: GI Bleed, Hypertension History of Any Multi-Drug Resistant Organisms: None Reported Past Surgical History: Appendectomy, Hernia Repair Additional Past Surgical History / Comment(s): right inguinal hernia repair x 2, left inguinal repair. TONGUE SURGERY D/T "BUMP"-REMOVED. Past Anesthesia/Blood Transfusion Reactions: Motion Sickness, Postoperative Nausea & Vomiting (PONV) Additional Past Anesthesia/Blood Transfusion Reaction / Comment(s): gets very nauseated w/anesthesia Smoking Status: Never smoker - Past Family History Mother Family Medical History: Cancer, Hypertension Additional Family Medical History / Comment(s): SKIN CANCER. Father Family Medical History: Hypertension Medications and Allergies Home Medications Medication Instructions Recorded Confirmed Type Bisoprolol-Hctz 5-6.25 mg [Ziac 1 tab PO HS 12/16/18 02/28/21 History 5-6.25] Escitalopram [Lexapro] 10 mg PO HS 12/16/18 02/28/21 History Allergies Allergy/AdvReac Type Severity Reaction Status Date / Time No Known Allergies Allergy Verified 02/28/21 09:08
[~2021-03-01 08:40] MED LIST changes: -ACETAMINOPHEN TAB 500 MG TAB PO STA; -BUPIVACAIN-EPI 0.25%-1:200,000 30 ML VIAL SQ ONE; -DEXAMETHASONE SOD PHOSPHATE 10 MG/ML 1 ML VIAL IV ONE; -GABAPENTIN 300 MG CAP PO STA; -GLYCOPYRROLATE 0.2 MG/ML 2 ML VIAL ONE; -HEPARIN SODIUM,PORCINE 5,000 UNIT/ML 1 ML VIAL SQ STA; -HYDROmorphone (PF) 1 MG/ML ONE; -HYDROmorphone 0.5 MG/0.5 ML SYRINGE IVP PRN; -KETOROLAC 30 MG/ML 1 ML VIAL ONE; -LACTATED RINGERS 1,000 ML IV ONE; +LIDOCAINE 1% (10MG/ML) FOR IV START INTRADERMA PRN; -LIDOCAINE 1% INJ 10MG/ML (20 ML MDV) ONE; -MIDAZOLAM 2 MG/2 ML VIAL IV PRN; -MIDAZOLAM 2 MG/2 ML VIAL ONE; -NEOSTIGMINE 1 MG/ML 10 ML VIAL ONE; -PHENYLEPHRINE-0.9% NACL SYG 1 MG/10 ML SYRINGE ONE; -PROPOFOL 10 MG/ML 20 ML VIAL IV ONE; -Pre Op ABX Message 1 EACH MISC MISCELLANE ONE; -ROCURONIUM BROMIDE 10 MG/ML 10 ML VIAL IV ONE; -SCOPOLAMINE 1.5MG/72HR PATCH TRANSDERM ONE; -SIMETHICONE 80 MG CHEWABLE PO ONE; -SUCCINYLCHOLINE CHLORIDE 100 MG/5 ML SYR IV ONE; -TAMSULOSIN 0.4 MG CAP.ER.24H PO ONE; -diphenhydrAMINE 50 MG/ML 1 ML VIAL ONE; -fentaNYL (PF) 50 MCG/ML 2 ML AMP ONE
[2021-03-01 09:56] VITALS: TEMP 97.6
[2021-03-01] MEDS ORDERED: ONDANSETRON 4 MG/2 ML VIAL ONE (10:07)
[2021-03-01] MEDS ORDERED: SCOPOLAMINE 1.5MG/72HR PATCH TRANSDERM ONE (10:16)
[2021-03-01] MEDS ORDERED: PROPOFOL 10 MG/ML 20 ML VIAL IV ONE (10:18)
--- NOTE | 2021-03-01 10:47 | P.PCN ---
Date of Procedure: 03/01/21 Description of Procedure: PREOPERATIVE DIAGNOSIS: History of rectal bleeding POSTOPERATIVE DIAGNOSIS: Diverticulosis, scattered. OPERATION: Colonoscopy to the cecum, ileocecal valve and appendiceal orifice. SURGEON: Michaela Calabrese MD. ANESTHESIA: MAC. INDICATIONS: The patient is a 25-year-old male who presents with history of rectal bleeding. Benefits and risks were described and informed consent was obtained. DESCRIPTION OF PROCEDURE: The patient had undergone Sutab prep. The patient had been brought into the operating room and laid in the left lateral decubitus position. After adequate intravenous sedation, the rectum was examined with 2% lidocaine jelly. No external hemorrhoids were encountered. The prostate was unremarkable. The rectal tone was within normal limits. No lesions were palpated in the rectal vault. An Olympus colonoscope was advanced until the cecum, ileocecal valve and appendiceal orifice were clearly viewed. The prep was excellent. Scattered diverticulosis including along the ascending colon was encountered. No colonic polyps were found. No evidence of focal colitis was found. Retroflexion of the scope demonstrated grade 1 internal hemorrhoids without active bleeding or inflammation. The colon was desufflated. The patient had tolerated the procedure well. Withdrawal time was over 6 minutes. FINDINGS: Aronchick preparation quality scale1 (1-5) Internal hemorrhoids, grade 1 No external prolapsed hemorrhoids. No arteriovenous malformations. No adenomatous polyps. No focal colitis. Duke diverticulosis, mild RECOMMENDATIONS: Lower endoscopy as needed Fiber diet 24-30 g daily Plan - Discharge Summary Discharge Rx Participant: No New Discharge Prescriptions: Continue Escitalopram [Lexapro] 10 mg PO HS Bisoprolol-Hctz 5-6.25 mg [Ziac 5-6.25 MG] 1 tab PO HS Discharge Medication List Bisoprolol-Hctz 5-6.25 mg [Ziac 5-6.25 MG] 1 tab PO HS 12/16/18 [History] Escitalopram [Lexapro] 10 mg PO HS 12/16/18 [History] Follow up Appointment(s)/Referral(s): Michaela Calabrese MD [STAFF PHYSICIAN] - 03/14/21 Patient Instructions/Handouts: *[facility] - Scopalamine Patch Instructions, Diverticulosis Diet (GEN), Diverticulosis (GEN) Activity/Diet/Wound Care/Special Instructions: Lower endoscopy as needed Discharge Disposition: HOME SELF-CARE
[2021-03-01 10:54] VITALS: PULSE 73
[2021-03-01 11:12] VITALS: BP 124/75; RESP 16
== END 2021-03-01 11:41 | disposition home or self-care (01) ==
LOC: ORWHC2ENDO 08:40
PROVIDERS: ATTEND Surgery Plastic and Reconstructive Surgery
DX: K62.5 Hemorrhage of anus and rectum (principal); K57.90 Diverticulosis of intestine, part unspecified, without perforation or abscess without bleeding; K64.8 Other hemorrhoids; I10 Essential (primary) hypertension; Z79.899 Other long term (current) drug therapy; F41.9 Anxiety disorder, unspecified; F32.9 Major depressive disorder, single episode, unspecified
CPT/HCPCS: 45378; J2405; J2704

== ENCOUNTER 2022-07-06 05:45 | Day surgery (SDC) | payer BC, MEDICAID ==
[2022-07-04 14:21] VITALS: BMI 29.0
--- NOTE | 2022-07-06 05:21 | P.GSHP ---
History of Present Illness H&P Date: 07/06/22 CHIEF COMPLAINT: Incisional hernia HISTORY OF PRESENT ILLNESS: The patient is a 26-year-old male presents with a history of swelling and pain along the abdomen from an incisional hernia of the abdomen. Symptoms have been present for over 6 months. Now he presents for surgical intervention. PAST MEDICAL HISTORY: Please see list. PAST SURGICAL HISTORY: Please see list. MEDICATIONS: Please see list. ALLERGIES: Please see list. SOCIAL HISTORY: No illicit drug use FAMILY HISTORY: No reports of Crohn disease or ulcerative colitis. REVIEW OF ORGAN SYSTEMS: CONSTITUTIONAL: No reports of fevers or chills. No reports of weight loss despite prior attempts. GI: Denies any blood in stools or constipation. PHYSICAL EXAM: VITAL SIGNS: Stable GENERAL: Well-developed pleasant male in no acute distress. HEENT: No scleral icterus. Extraocular movements grossly intact. Moist buccal mucosa. NECK: Supple without lymphadenopathy. CHEST: Unlabored respirations. Equal bilateral excursions. CARDIOVASCULAR: Regular rate and rhythm. Distal 2+ pulses. ABDOMEN: Soft, nondistended. Palpable defect of the abdomen. No peritoneal signs. MUSCULOSKELETAL: No clubbing, cyanosis, or edema. ASSESSMENT: 1. Incisional hernia PLAN: 1. Recommend proceeding with robotic incisional hernia repair with mesh. 2. Benefits and risks of surgical intervention was discussed including possibility of open technique. 3. DVT prophylaxis. 4. Antibiotic prophylaxis. 5. Non narcotic pain management including abdominal wall block described 6. Blood sugar glucose described. 7. Weight loss management described. Past Medical History Past Medical History: GI Bleed, Hypertension Additional Past Medical History / Comment(s): diverticulitis, History of Any Multi-Drug Resistant Organisms: None Reported Past Surgical History: Appendectomy, Hernia Repair Additional Past Surgical History / Comment(s): right inguinal hernia repair x 2, left inguinal repair. TONGUE SURGERY D/T "BUMP"-REMOVED. Past Anesthesia/Blood Transfusion Reactions: Motion Sickness, Postoperative Nausea & Vomiting (PONV) Additional Past Anesthesia/Blood Transfusion Reaction / Comment(s): gets very nauseated w/general anesthesia Smoking Status: Never smoker - Past Family History Mother Family Medical History: Cancer Additional Family Medical History / Comment(s): melanoma Father Family Medical History: Hypertension Medications and Allergies Home Medications Medication Instructions Recorded Confirmed Type Bisoprolol-Hctz 5-6.25 mg [Ziac 1 tab PO HS 12/16/18 07/04/22 History 5-6.25 MG] Escitalopram [Lexapro] 10 mg PO HS 12/16/18 07/04/22 History Omeprazole [PriLOSEC] 20 mg PO AC-BRKFST PRN 07/04/22 07/04/22 History Allergies Allergy/AdvReac Type Severity Reaction Status Date / Time No Known Allergies Allergy Verified 07/04/22 14:13
[~2022-07-06 05:45] MED LIST changes: +ACETAMINOPHEN TAB 500 MG TAB PO STA; +GABAPENTIN 300 MG CAP PO STA; +HEPARIN SODIUM,PORCINE/PF 5,000 UNIT/0.5 ML SYRINGE SQ PRN; -LACTATED RINGERS 1,000 ML IV SCH; -LIDOCAINE 1% (10MG/ML) FOR IV START INTRADERMA PRN; +MELOXICAM 7.5 MG TAB PO PRN
[2022-07-06] MEDS ORDERED: DEXAMETHASONE SOD PHOSPHATE 4 MG/ML 1 ML VIAL IV ONE (05:51)
[2022-07-06] MEDS ORDERED: LACTATED RINGERS 1,000 ML IV SCH (05:51)
[2022-07-06] MEDS ORDERED: SCOPOLAMINE 1 MG/72 HR PATCH TRANSDERM ONE (05:51)
[2022-07-06] MEDS ORDERED: MIDAZOLAM 2 MG/2 ML VIAL IV PRN (05:51)
[2022-07-06] MEDS ORDERED: ONDANSETRON 4 MG/2 ML VIAL IVP ONE ×3 (05:51→10:17)
[2022-07-06 06:36] VITALS: TEMP 97.3
[2022-07-06 06:46] LABS: Glucose,Whole Blood 88 mg/dL (70-110)
[2022-07-06 06:53] LABS: Basophils # (A) 0.1 k/uL (0-0.2); Basophils % (A) 1 %; Eosinophils # (A) 0.1 k/uL (0-0.7); Eosinophils % (A) 2 %; HCT 44.1 % (39.0-53.0); HGB 15.8 gm/dL (13.0-17.5); Lymphocytes # (A) 1.9 k/uL (1.0-4.8); Lymphocytes % (A) 33 %; MCH 31.7 pg (25.0-35.0); MCHC 35.8 g/dL (31.0-37.0); MCV 88.6 fL (80.0-100.0); Mean Platelet Volume 7.6; Monocytes # (A) 0.5 k/uL (0-1.0); Monocytes % (A) 8 %; Neutrophils # (A) 3.2 k/uL (1.3-7.7); Neutrophils % (A) 55 %; Platelet Count 289 k/uL (150-450); RBC 4.98 m/uL (4.30-5.90); RDW 12.6 % (11.5-15.5); WBC 5.7 k/uL (3.8-10.6)
[2022-07-06] MEDS ORDERED: MIDAZOLAM 2 MG/2 ML VIAL IVP ONE (07:19)
[2022-07-06] MEDS ORDERED: SODIUM CHLORIDE 0.9% (PF) 10 ML VIAL ONE (07:35)
[2022-07-06] MEDS ORDERED: NEOSTIGMINE 1 MG/ML 10 ML VIAL ONE (07:35)
[2022-07-06] MEDS ORDERED: ROCURONIUM 10 MG/ML (5 ML VIAL) IV ONE (07:35)
[2022-07-06] MEDS ORDERED: MIDAZOLAM 2 MG/2 ML VIAL ONE (07:35)
[2022-07-06] MEDS ORDERED: ROPIVACAINE 5 MG/ML 30 ML VIAL ONE (07:35)
[2022-07-06] MEDS ORDERED: PROPOFOL 10 MG/ML 20 ML VIAL IV ONE (07:35)
[2022-07-06] MEDS ORDERED: LIDOCAINE 2% INJ 20 MG/ML (2 ML VIAL) ONE (07:35)
[2022-07-06] MEDS ORDERED: fentaNYL (PF) 50 MCG/ML 2 ML AMP ONE (07:35)
[2022-07-06] MEDS ORDERED: GLYCOPYRROLATE 0.2 MG/ML 2 ML VIAL ONE (07:35)
[2022-07-06] MEDS ORDERED: SUCCINYLCHOLINE CHLORIDE 200 MG/10 ML VIAL IV ONE (07:35)
[2022-07-06] MEDS ORDERED: LACTATED RINGERS 1,000 ML IV ONE (08:16)
[2022-07-06] MEDS ORDERED: LIDOCAINE 1%-EPI 1:100,000 20 ML VIAL SQ ONE (08:16)
[2022-07-06 09:48] VITALS: RESP 16
[2022-07-06] MEDS ORDERED: KETOROLAC 15 MG/ML 1 ML VIAL IVP ONE (10:00)
[2022-07-06] MEDS: HYDROmorphone 0.5 MG/0.5 ML SYRINGE IVP PRN ×2 (10:01→10:19)
--- NOTE | 2022-07-06 10:30 | P.ANPRN ---
Procedure Note - Anesthesia - Nerve Block Performed Bilateral Transversus Abdominis Single Time Out Performed: Yes (0718) Date of Procedure: 07/06/22 Procedure Start Time: : Procedure Stop Time: Location of Patient: PreOp Indication: Acute Post-Operative Pain, Requested by Surgeon Specifically requested for management of pain by : Michaela Calabrese Sedation Type: Sedate with meaningful contact maintained Preparation: Sterile Prep Position: Supine Catheter: None Needle Types: Pajunk Needle Gauge: 21 Ultrasound used to visualize needle placement: Yes Ultrasound used to observe medication spread: Yes Injectate: 0.5% Ropivacaine (see comment for volume) (15cc + 10cc nacl pf) Blood Aspirated: No Pain Paresthesia on Injection Noted: No Resistance on Injection: Normal Image Stored and Saved: Yes Events: Uneventful and Well Tolerated
[2022-07-06] MEDS ORDERED: HYDROcodone/APAP 5-325MG 1 EACH TAB PO ONE (10:51)
--- NOTE | 2022-07-06 11:24 | P.OP ---
Date of Procedure: 07/06/22 Description of Procedure: SURGEON: MICHAELA CALABRESE MD PREOPERATIVE DIAGNOSES: 1. Incisional ventral hernia 2. History of multiple abdominal surgeries 3. Gastroesophageal reflux disease 4. Depressive disorder POSTOPERATIVE DIAGNOSES: 1. Incisional ventral hernia 2. History of multiple abdominal surgeries 3. Gastroesophageal reflux disease 4. Depressive disorder 5. Right lower quadrant adhesions OPERATION: 1. Robotic-assisted da Jourdan Xi laparoscopic repair of initial incarcerated incisional hernia with mesh, ventralight ST mesh 11.4 cm 2. Robotic-assisted da Jourdan Xi laparoscopic lysis of adhesions Anesthesia: GETA, regional, local Estimated Blood Loss (ml): 5 Pathology: 1. Incarcerated incisional upper midline ventral hernia defect COMPLICATIONS: None. Operative Findings: 1. Upper epigastric incisional hernia defect 4 x 2 cm 2. Fascia repaired using #1 V-lock suture INDICATIONS: The patient is a 26-year-old male who presents with a personal history of multiple abdominal wall hernias. Surgical intervention with laparoscopic versus robotic and open techniques were reviewed. Placement of mesh was also reviewed. Benefits and risks were thoroughly described. Informed consent was obtained. DESCRIPTION OF PROCEDURE: The patient was brought into the operating room and laid in supine position. After general induction, the abdomen had been prepped and draped in standard sterile fashion. Ioban draping was also placed. Prior to incision, a timeout protocol was confirmed with surgical team regarding the patient's name including procedures to be performed. The robot was primed prior to the procedure. A field block using local anesthetic was placed along hernia site including the proposed port sites. Initial incision was made with an #11 blade along the left upper quadrant. A 0 degree 5 mm laparoscopic trocar entry was performed and insufflated. Three 8 mm ports were placed along the left lateral abdominal wall under direct localization after exchanging the 5-mm for an 8 mm port. Placements of the ports were 15 cm from the target anatomy and 10 cm apart. An accessory 12 mm port was placed at the right upper quadrant for exchange of mesh including sutures. The [employer] Xi robot was previously primed, prepped and draped then docked from the right side of the patient onto the left side of the patient. I then sat at the robot [employer] Xi console where working arms of the robot including Bovie cautery connected to robotic scissors, needle yard driver, and graspers placed by the physician assistant certified. Right lower quadrant/pelvic adhesion of omentum to abdominal wall was lysed using blunt dissection and cautery. The incarcerated contents were reduced as the peritoneal fat was cleaned from the abdominal wall. Next, hemostasis was checked with cautery. Incarcerated preperitoneal fat was identified involving the epigastrium and extended to the umbilicus. Combined size of defect 4 x 2 cm. The hernia defects were oversewn using #1 nonabsorbable V-lock suture for each defect with fascial imbrication x 2. Next, ventralight ST mesh 11.4 cm was placed with the rough side towards the abdominal wall as to cover the epigastric incisional hernia including umbilical defect. 2-0 VLOC 12 inch sutures were used to fixate the mesh. A final endoscopic imaging was obtained. All instruments and pneumoperitoneum were evacuated from the abdominal cavity. The da Jourdan Xi robot was undocked from the patient. I re-scrubbed into the case for closure of incisions. The fascia of the 12-mm port was also using 0 Vicryl and Eleazar Garza. The incisions were reapproximated using 4-0 Monocryl in an interrupted subcuticular fashion. Liquid glue was applied to the skin after cleansing the skin with normal saline and dilute hydrogen peroxide. An abdominal binder was placed. At the end of the procedure, needle, sponge, and instrument count had been verified correct by surgical coder. The patient was taken to the postanesthesia care unit in stable condition. Plan - Discharge Summary Discharge Rx Participant: Yes New Discharge Prescriptions: New Cyclobenzaprine [Flexeril] 10 mg PO TID #30 tab Simethicone [Gas-X] 125 mg PO AC-TID PRN #20 capsule PRN Reason: Pain Ibuprofen [Motrin] 600 mg PO Q8HR PRN #30 tab PRN Reason: Pain Acetaminophen Tab [Tylenol Tab] 1,000 mg PO Q6HR PRN #30 tablet PRN Reason: Pain Continue Escitalopram [Lexapro] 10 mg PO HS Bisoprolol-Hctz 5-6.25 mg [Ziac 5-6.25 MG] 1 tab PO HS Omeprazole [PriLOSEC] 20 mg PO AC-BRKFST PRN PRN Reason: Heartburn Discharge Medication List Bisoprolol-Hctz 5-6.25 mg [Ziac 5-6.25 MG] 1 tab PO HS 12/16/18 [History] Escitalopram [Lexapro] 10 mg PO HS 12/16/18 [History] Omeprazole [PriLOSEC] 20 mg PO AC-BRKFST PRN 07/04/22 [History] Acetaminophen Tab [Tylenol Tab] 1,000 mg PO Q6HR PRN #30 tablet 07/06/22 [Rx] Cyclobenzaprine [Flexeril] 10 mg PO TID #30 tab 07/06/22 [Rx] Ibuprofen [Motrin] 600 mg PO Q8HR PRN #30 tab 07/06/22 [Rx] Simethicone [Gas-X] 125 mg PO AC-TID PRN #20 capsule 07/06/22 [Rx] Follow up Appointment(s)/Referral(s): Michaela Calabrese MD [STAFF PHYSICIAN] - 07/10/22 (Telehealth) Patient Instructions/Handouts: *[facility] - Anesthesia Discharge Instructions, *[facility] - Managing Your Pain After Surgery Without Opioids, *[facility] - Scopalamine Patch Instructions, Scopolamine (Into the eye), Laparoscopic Herniorrhaphy (DC), Abdominal Binder (DC) Activity/Diet/Wound Care/Special Instructions: No lifting for 4 pounds in 4 weeks, Aug 05 Using antibacterial soap. May shower. No bathtub soaks for 2 weeks, Jul 20 Wear abdominal binder daily for comfort except for showering. Use ice along incisions for today to prevent swelling. Discharge Disposition: HOME SELF-CARE
[2022-07-06 12:11] VITALS: BP 124/78; PULSE 86
[2022-07-06 14:13] LABS: ALT 49 U/L (4-49); African American GFR (CKD) >90 (>60 ml/min/1.73 sqM); Anion Gap 8 mmol/L; Blood Urea Nitrogen 9 mg/dL (9-20); Calcium 8.9 mg/dL (8.4-10.2); Carbon Dioxide 25 mmol/L (22-30); Chloride 105 mmol/L (98-107); Glucose 99 mg/dL (74-99); Non-African American GFR(CKD) >90 (>60 ml/min/1.73 sqM); Sodium 138 mmol/L (137-145); Total Bilirubin 0.8 mg/dL (0.2-1.3)
[2022-07-06 14:17] LABS: Potassium 4.6 mmol/L (3.5-5.1); Total Protein 7.6 g/dL (6.3-8.2)
[2022-07-06 14:20] LABS: AST 48 U/L (17-59); Albumin 4.8 g/dL (3.5-5.0); Alkaline Phosphatase 52 U/L (38-126)
== END 2022-07-06 12:29 | disposition home or self-care (01) ==
LOC: OR 05:45
PROVIDERS: ATTEND Surgery Plastic and Reconstructive Surgery
DX: K43.0 Incisional hernia with obstruction, without gangrene (principal); G89.18 Other acute postprocedural pain; K21.9 Gastro-esophageal reflux disease without esophagitis; F32.A Depression, unspecified; I10 Essential (primary) hypertension; K57.92 Diverticulitis of intestine, part unspecified, without perforation or abscess without bleeding; K91.0 Vomiting following gastrointestinal surgery; Z98.49 Cataract extraction status, unspecified eye; Z80.8 Family history of malignant neoplasm of other organs or systems; Z82.49 Family history of ischemic heart disease and other diseases of the circulatory system; Z79.899 Other long term (current) drug therapy; T75.3XXD Motion sickness, subsequent encounter
CPT/HCPCS: 93005; 64488; 80053; 85025; 49655; C1781; J2250; J0330; J1100; J2710; J0690; J2405; J3010; J2795; J1885; J2704; J1170; J1644; J2001; 88302

== ENCOUNTER 2022-07-25 08:33 | Day surgery (SDC) | payer BC ==
[2022-07-25 08:49] VITALS: BP 115/75; PULSE 81; RESP 16; TEMP 97.2
--- NOTE | 2022-07-25 09:28 | US ---
ULTRASOUND GUIDED FNA SUBCUTANEOUS ANTERIOR ABDOMINAL WALL SEROMA: CLINICAL HISTORY: Seroma FINDINGS: The pulmonary imaging demonstrated no evidence of fluid collection or seroma. IMPRESSION: 1. No evidence of seroma..
== END 2022-07-25 09:20 | disposition home or self-care (01) ==
LOC: RADPROMAIN 08:33
PROVIDERS: ATTEND Surgery Plastic and Reconstructive Surgery
DX: L76.34 Postprocedural seroma of skin and subcutaneous tissue following other procedure (principal)
CPT/HCPCS: 76536

== ENCOUNTER 2022-09-17 08:23 | Day surgery (SDC) | payer BC, OTHER ==
[2022-09-13 11:00] VITALS: BMI 29.0
[2022-09-14 07:58] LABS: HCT 46.5 % (39.0-53.0); HGB 15.7 gm/dL (13.0-17.5); MCH 31.7 pg (25.0-35.0); MCHC 33.8 g/dL (31.0-37.0); MCV 93.6 fL (80.0-100.0); Mean Platelet Volume 7.3; Platelet Count 308 k/uL (150-450); RBC 4.97 m/uL (4.30-5.90); WBC 5.6 k/uL (3.8-10.6)
--- NOTE | 2022-09-17 07:28 | P.GSHP ---
History of Present Illness H&P Date: 09/17/22 CHIEF COMPLAINT: History of intra-abdominal adhesions HISTORY OF PRESENT ILLNESS: The patient is a 27-year-old male who presents with history of intra-abdominal adhesions from multiple prior surgeries including increasing abdominal pain. She now presents for diagnostic laparoscopy including lysis of adhesions. PAST MEDICAL HISTORY: Please see list. PAST SURGICAL HISTORY: Please see list. MEDICATIONS: Please see list. ALLERGIES: Please see list. SOCIAL HISTORY: No illicit drug use FAMILY HISTORY: No reports of Crohn disease or ulcerative colitis. REVIEW OF ORGAN SYSTEMS: CONSTITUTIONAL: No reports of fevers or chills. GI: Denies any blood in stools or constipation. PHYSICAL EXAM: VITAL SIGNS: Stable GENERAL: Well-developed pleasant and in no acute distress. HEENT: No scleral icterus. Extraocular movements grossly intact. Moist buccal mucosa. NECK: Supple without lymphadenopathy. CHEST: Unlabored respirations. Equal bilateral excursions. CARDIOVASCULAR: Regular rate and rhythm. Distal 2+ pulses. ABDOMEN: Soft, diffuse abdominal tenderness. No peritonitis. MUSCULOSKELETAL: No clubbing, cyanosis, or edema. ASSESSMENT: 1. Diffuse abdominal pain. 2. History of multiple abdominal surgeries. 3. Intra-abdominal adhesions. PLAN: 1. Robotic lysis of adhesions were described in detail including risk of injury to the intestine, need for further surgery, and open technique. 2. DVT prophylaxis. 3. Antibiotic prophylaxis. Past Medical History Past Medical History: GI Bleed, Hypertension Additional Past Medical History / Comment(s): diverticulitis, History of Any Multi-Drug Resistant Organisms: None Reported Past Surgical History: Appendectomy, Hernia Repair Additional Past Surgical History / Comment(s): multiple hernia repairs. TONGUE SURGERY D/T "BUMP"-REMOVED. INCISIONAL HERNIA Past Anesthesia/Blood Transfusion Reactions: Motion Sickness, Postoperative Nausea & Vomiting (PONV) Additional Past Anesthesia/Blood Transfusion Reaction / Comment(s): gets very nauseated w/general anesthesia Smoking Status: Never smoker - Past Family History Mother Family Medical History: Cancer Additional Family Medical History / Comment(s): melanoma Father Family Medical History: Hypertension Medications and Allergies Home Medications Medication Instructions Recorded Confirmed Type Bisoprolol-Hctz 5-6.25 mg [Ziac 1 tab PO HS 12/16/18 09/13/22 History 5-6.25 MG] Escitalopram [Lexapro] 10 mg PO HS 12/16/18 09/13/22 History Acetaminophen Tab [Tylenol Tab] 1,000 mg PO Q6HR PRN #30 tablet 07/06/22 09/13/22 Rx Allergies Allergy/AdvReac Type Severity Reaction Status Date / Time No Known Allergies Allergy Verified 09/13/22 10:48 Results - Labs 09/14/22 07:16 09/14/22 07:16
[~2022-09-17 08:23] MED LIST changes: +DEXAMETHASONE SOD PHOSPHATE 4 MG/ML 1 ML VIAL IV ONE; -GABAPENTIN 300 MG CAP PO STA; +HYDROmorphone 0.5 MG/0.5 ML SYRINGE IVP PRN; +LIDOCAINE 1% (10MG/ML) FOR IV START INTRADERMA PRN; -MELOXICAM 7.5 MG TAB PO PRN; +MIDAZOLAM 2 MG/2 ML VIAL IV PRN; +ONDANSETRON 4 MG/2 ML VIAL IVP ONE; +Pre Op ABX Message 1 EACH MISC MISCELLANE ONE
[2022-09-17] MEDS: LACTATED RINGERS 1,000 ML IV SCH ×2 (09:06→12:04)
[2022-09-17] MEDS ORDERED: SCOPOLAMINE 1 MG/72 HR PATCH TRANSDERM ONE (09:10)
[2022-09-17] MEDS ORDERED: NEOSTIGMINE 1 MG/ML 10 ML VIAL ONE (09:59)
[2022-09-17] MEDS ORDERED: SUCCINYLCHOLINE CHLORIDE 200 MG/10 ML VIAL IV ONE (09:59)
[2022-09-17] MEDS ORDERED: GLYCOPYRROLATE 0.2 MG/ML 2 ML VIAL ONE (09:59)
[2022-09-17] MEDS ORDERED: KETOROLAC 15 MG/ML 1 ML VIAL ONE (09:59)
[2022-09-17] MEDS ORDERED: ROCURONIUM 10 MG/ML (5 ML VIAL) IV ONE (09:59)
[2022-09-17] MEDS ORDERED: LIDOCAINE 4% LTA KIT (4 ML) TOPICAL ONE (09:59)
[2022-09-17] MEDS ORDERED: HYDROmorphone (PF) 1 MG/ML ONE (09:59)
[2022-09-17] MEDS ORDERED: fentaNYL (PF) 50 MCG/ML 2 ML AMP ONE (09:59)
[2022-09-17] MEDS ORDERED: PROPOFOL 10 MG/ML 20 ML VIAL IV ONE (09:59)
[2022-09-17] MEDS ORDERED: LIDOCAINE 2% INJ 20 MG/ML (2 ML VIAL) ONE (09:59)
[2022-09-17] MEDS ORDERED: MIDAZOLAM 2 MG/2 ML VIAL ONE (09:59)
[2022-09-17] MEDS ORDERED: BUPIVACAIN-EPI 0.25%-1:200,000 30 ML VIAL SQ ONE ×3 (10:29→10:47)
[2022-09-17 11:21] VITALS: TEMP 97.2
[2022-09-17 11:51] VITALS: RESP 16
[2022-09-17] MEDS ORDERED: METOCLOPRAMIDE 5 MG/ML 2 ML VIAL IVP ONE (11:58)
[2022-09-17 12:53] VITALS: BP 124/73; PULSE 94
--- NOTE | 2022-09-18 00:32 | P.OP ---
Date of Procedure: 09/17/22 Description of Procedure: SURGEON: MICHAELA CALABRESE MD PREOPERATIVE DIAGNOSES: 1. Right abdominal pain with right groin pain 2. History of multiple abdominal surgeries 3. Gastroesophageal reflux disease 4. Depressive disorder 5. Personal history of intra-abdominal adhesions POSTOPERATIVE DIAGNOSES: 1. Right abdominal pain with right groin pain due to peritoneal/omental adhesions 2. History of multiple abdominal surgeries 3. Gastroesophageal reflux disease 4. Depressive disorder 5. Personal history of intra-abdominal adhesions OPERATION: 1. Robotic-assisted da Jourdan Xi laparoscopic with extensive lysis of adhesions, over 30 minutes. ESTIMATED BLOOD LOSS: 5 mL. SPECIMENS REMOVED: None. COMPLICATIONS: None. OPERATIVE FINDINGS: 1. No recurrent abdominal wall hernias. 2. Severe epigastric, right sided and right groin adhesions of omentum to mesh 3. Hernia repairs intact without recurrence INDICATIONS: The patient is a 27-year-old male who presents with persistent right sided abdominal pain. Surgical intervention with diagnostic laparoscopy, lysis of adhesions were described. Informed consent was obtained. Robotic assisted laparoscopic approach was described. Benefits and risks of the procedure including but not limited to bleeding, infection was described. Informed consent was obtained. DESCRIPTION OF PROCEDURE: Patient was brought to the operating room, placed in supine position. After general induction, the abdomen had been prepped and draped in standard sterile fashion. The robotic da Jourdan XI system was primed. After a timeout protocol was performed, the patient had been prepped and draped in standard sterile fashion. The robot was docked along the left lateral abdomen. Please note prior to docking of the robot; however, a 5 mm 0 degrees laparoscopic trocar entry was performed along the left upper quadrant. Next, three 8 mm robotic ports were placed along the left lateral abdominal wall abdomen. Trocars were placed at least 10 to 15 cm away from the target anatomy. Instruments including graspers and vessel sealer were interchanged by the therapy assistant. I had sat at the console. Greater omental adhesion to the epigastrium, right abdomen and right groin were identified and sharply divided using vessel sealer. Adhesions extending to the right groin with adhesions to his mesh surgery were sharply divided. No recurrent ventral hernias were found. Hemostasis was checked. No large or small bowel obstruction was identified. The robot was undocked. All pneumoperitoneum and instruments were evacuated from the abdominal cavity. The incisions were reapproximated using 4-0 Monocryl in an interrupted subcuticu lar fashion. Please note along the trocar sites, local anesthetic was placed as a field block prior to insertion of all instruments. Exofin was applied to the skin. At the end of the procedure needle, sponge, and instrument count had been verified correct by the surgical technology instructor. The patient was transferred to postanesthesia care unit in stable condition. Plan - Discharge Summary Discharge Rx Participant: Yes New Discharge Prescriptions: New Acetaminophen Tab [Tylenol Tab] 1,000 mg PO Q6HR PRN #30 tablet PRN Reason: Pain Simethicone [Gas-X] 125 mg PO AC-TID PRN #20 capsule PRN Reason: Pain Continue Escitalopram [Lexapro] 10 mg PO HS Bisoprolol-Hctz 5-6.25 mg [Ziac 5-6.25 MG] 1 tab PO HS Acetaminophen Tab [Tylenol] 1,000 mg PO Q6HR PRN #30 tablet PRN Reason: Pain Discharge Medication List Bisoprolol-Hctz 5-6.25 mg [Ziac 5-6.25 MG] 1 tab PO HS 12/16/18 [History] Escitalopram [Lexapro] 10 mg PO HS 12/16/18 [History] Acetaminophen Tab [Tylenol] 1,000 mg PO Q6HR PRN #30 tablet 07/06/22 [Rx] Acetaminophen Tab [Tylenol Tab] 1,000 mg PO Q6HR PRN #30 tablet 09/17/22 [Rx] Simethicone [Gas-X] 125 mg PO AC-TID PRN #20 capsule 09/17/22 [Rx] Follow up Appointment(s)/Referral(s): Michaela Calabrese MD [STAFF PHYSICIAN] - 09/25/22 Patient Instructions/Handouts: *Surgery [facility] - (Anesthesia) Discharge Instructions Outpatient Surgery, *Surgery [facility] - Scopalamine Patch Instructions, Lysis of Abdominal Adhesions (DC) Activity/Diet/Wound Care/Special Instructions: No lifting over 10 pounds in 2 weeks Oct 01.. May shower. No bath tub soaks for two weeks, Oct 01. Diet as tolerated. Use Tylenol, simethicone and ibuprofen or Aleve scheduled for the next 24-48 hours for best pain relief. Use ice along incisions for today to prevent swelling. Discharge Disposition: HOME SELF-CARE
== END 2022-09-17 13:20 | disposition home or self-care (01) ==
LOC: OR 08:23
PROVIDERS: ATTEND Surgery Plastic and Reconstructive Surgery
DX: K66.0 Peritoneal adhesions (postprocedural) (postinfection) (principal); I10 Essential (primary) hypertension; G43.909 Migraine, unspecified, not intractable, without status migrainosus; K57.92 Diverticulitis of intestine, part unspecified, without perforation or abscess without bleeding; Z79.899 Other long term (current) drug therapy; K21.9 Gastro-esophageal reflux disease without esophagitis; F32.A Depression, unspecified; Z90.49 Acquired absence of other specified parts of digestive tract; Z82.49 Family history of ischemic heart disease and other diseases of the circulatory system
CPT/HCPCS: 84132; 85027; 44180; J1100; J2765; J0690; J2405; J1644

== ENCOUNTER → 2023-06-26 | Outpatient (CLI) | payer BC ==
[2023-06-26 17:03] LABS: ALT 51 U/L (10-49); AST 27 U/L (14-35); Albumin 4.7 g/dL (3.8-4.9); Albumin/Globulin Ratio 1.88 Ratio (1.60-3.17); Alkaline Phosphatase 60 U/L (41-126); BUN/Creat Ratio 13.33 Ratio (12.00-20.00); Calcium 10.1 mg/dL (8.7-10.3); Carbon Dioxide 26.9 mmol/L (21.6-31.8); Chloride 103 mmol/L (96-109); Chol/HDL Ratio 6.52 Ratio; Globulin 2.5 g/dL (1.6-3.3); Glucose 95 mg/dL (70-110); LDL Cholesterol,Calculated 153.2 mg/dL (0.0-131.0); Potassium 4.7 mmol/L (3.5-5.5); Sodium 140 mmol/L (135-145); Total Bilirubin 0.4 mg/dL (0.3-1.2); Total Protein 7.2 g/dL (6.2-8.2)
[2023-06-26 17:10] LABS: Basophils # (A) 0.04 X 10*3/uL (0.00-0.10); Basophils % (A) 0.6 %; Eosinophils # (A) 0.07 X 10*3/uL (0.04-0.35); HCT 46.4 % (39.6-50.0); HGB 15.8 g/dL (13.0-17.0); Lymphocytes # (A) 2.16 X 10*3/uL (0.90-5.00); Lymphocytes % (A) 31.5 %; MCH 31.5 pg (27.0-32.0); MCHC 34.1 g/dL (32.0-37.0); MCV 92.4 FL (80.0-97.0); Mean Platelet Volume 9.5 FL (9.5-12.2); Monocytes # (A) 0.73 X 10*3/uL (0.20-1.00); Monocytes % (A) 10.6 %; NRBC Per 100 WBC 0 X 10*3/uL (0.00-0.01); Neutrophils # (A) 3.74 X 10*3/uL (1.80-7.70); Neutrophils % (A) 54.6 %; Platelet Count 309 X 10*3/uL (140-440); RBC 5.02 X 10*6/uL (4.40-5.60); RDW 12.9 % (11.5-14.5); WBC 6.86 X 10*3/uL (4.50-10.00)
== END | disposition home or self-care (01) ==
LOC: LABWHC1 08:04
PROVIDERS: ATTEND Family Medicine
DX: E78.00 Pure hypercholesterolemia, unspecified (principal); R25.1 Tremor, unspecified
CPT/HCPCS: 36415; 80053; 80061; 85025

== ENCOUNTER → 2025-02-15 | Outpatient (CLI) | payer OTHER ==
--- NOTE | 2025-02-15 11:02 | XR ---
EXAMINATION TYPE: XR tibia fibula LT DATE OF EXAM: 02/15/2025 10:53 AM COMPARISON: None. CLINICAL INDICATION: Male, 29 years old with history of S81.802A UNSPECIFIED OPEN WOUND, LEFT LOWER L EG, I, pain TECHNIQUE: XR tibia fibula LT views were obtained FINDINGS: There is no acute fracture/dislocation evident. The joint spaces appear within normal limits. The o verlying soft tissue appears unremarkable. IMPRESSION: No acute fracture or dislocation seen. [facility], , 02/15/2025 10:59 AM
== END | disposition home or self-care (01) ==
LOC: RADXRMAIN 10:26
PROVIDERS: ATTEND Emergency Medicine
DX: S81.802A Unspecified open wound, left lower leg, initial encounter (principal); X58.XXXA Exposure to other specified factors, initial encounter